=== PATIENT | female | born 1955 | race Caucasian/White ===

== ENCOUNTER → 2018-04-05 13:31 | Outpatient (CLI) | payer OTHER, SELFPAY ==
--- NOTE | 2018-04-05 13:35 | MR_ITS ---
MR lumbar spine wo con, MR 3-d myelogram/MRCP HISTORY: Low back pain, RT leg pain. Numbness and tingling. Symptoms X years. Pain has gotten worse. ITS.REASON: LUMBAR PAIN WITH RADIATION DOWN RIGHT LEG ORDERING PHYSICIAN: Constantine Degroot PATIENT AGE: 62 years Comparison: None TECHNIQUE: Standard multiplanar multiecho sequences are performed without contrast. 3-D MIP and myelographic images are also rendered and reviewed FINDINGS: There is normal alignment. The spinal cord ends at the T12-L1 level. There is mild lumbar scoliosis convex left. Multilevel degenerative disc disease with facet and ligamentum flavum hypertrophy. T10-T11: Degenerative disc disease. T11-T12: Degenerative disc disease with type II endplate changes. T12-L1: Anterior bridging osteophyte. L1-L2: Anterior bridging osteophyte with degenerative disc disease and minimal bulging disc. L2-L3: Degenerative disc disease with mild bulging disc along with mild facet and ligamentum flavum hypertrophy with mild right foraminal narrowing. L3-L4: Degenerative disc disease with bulging disc along with mild facet and ligamentum flavum hypertrophy with mild bilateral foraminal narrowing slightly greater on the right lung with mild bilateral lateral recess narrowing. L4-L5: Degenerative disc disease with Mild concentric bulging disc with minimal central disc protrusion very slightly eccentric to the right lung facet and ligamentum flavum hypertrophy with mild foraminal narrowing on the left. L5-S1: Degenerative disc disease concentric bulging disc with small central disc protrusion with increased T1 and T2 signal of the disc at this area. There is mild bilateral foraminal narrowing with facet and ligamentum flavum hypertrophy. No canal stenosis IMPRESSION: Multilevel lumbar spondylosis with degenerative disc disease and facet and ligamentum flavum hypertrophy with foraminal and lateral recess narrowing. Please see above for detailed description at each level. Degenerative disc disease at L5-S1 with concentric bulging disc and small central disc protrusion with increased T1 and T2 signal of the disc at this area. There is mild bilateral foraminal narrowing with facet and ligamentum flavum hypertrophy
== END ==
PROVIDERS: PCP Family Medicine; Visit Provider Family Medicine
DX: M54.5 Low back pain (principal); M51.36 Other intervertebral disc degeneration, lumbar region; M25.78 Osteophyte, vertebrae
CPT/HCPCS: 72148; 76376

== ENCOUNTER → 2019-05-19 12:51 | Outpatient (CLI) | payer OTHER, SELFPAY ==
--- NOTE | 2019-05-19 12:57 | MR_ITS ---
PROCEDURE: MR LUMBAR SPINE WO CON CLINICAL INDICATION: LOW BACK PAIN Low back pain, numbness and tingling down right leg, left-sided low back pain COMPARISON: SPLUMBWO MR lumbar spine wo con from 04/05/2018 TECHNIQUE: Standard multiplanar multiecho sequences are performed without contrast. 3-D MIP and myelographic images are also rendered and reviewed FINDINGS: There is normal alignment. The spinal cord ends at the L1 level. T10-T11: Degenerative disc disease. T11-T12: Degenerative disc disease with loss of the disc space anteriorly. This has progressed somewhat compared to the previous exam. Type 2 endplate changes are present T12-L1: Prominent anterior osteophyte on the left L1-L2: Anterior osteophytes. Mild disc desiccation with mild degenerative disc disease. Mild facet ligamentum hypertrophy. L2-L3: Minimal bulging disc with mild facet ligamentum hypertrophy with mild bilateral foraminal narrowing. Not significantly changed. L3-L4: Mild concentric bulging disc along with facet ligamentum hypertrophy with mild lateral recess and foraminal narrowing on the left with moderate right lateral recess and mild right foraminal narrowing. The right lateral recess narrowing is somewhat worse compared to the previous exam. L4-5: Degenerate disc disease with bulging disc with a small right paracentral disc protrusion with facet ligamentum hypertrophy with mild bilateral foraminal narrowing and right lateral recess narrowing. The small right paracentral disc protrusion appears slightly more prominent compared to the previous exam abutting the anterior medial aspect of the right L5 nerve root. L5-S1: Degenerate disc disease with bulging disc along with facet ligamentum hypertrophy with mild right and moderate to severe left foraminal narrowing not significantly changed. No extruded herniated disc evident. No bony canal stenosis IMPRESSION: 1. Multilevel lumbar spondylosis with degenerative disc disease, bulging disc, and facet and ligamentum hypertrophy. 2. T11-T12: Degenerative disc disease with loss of the disc space anteriorly. This has progressed somewhat compared to the previous exam. Type 2 endplate changes are present 3. L2-L3: Minimal bulging disc with mild facet ligamentum hypertrophy with mild bilateral foraminal narrowing. Not significantly changed. 4. L3-L4: Mild concentric bulging disc along with facet ligamentum hypertrophy with mild lateral recess and foraminal narrowing on the left with moderate right lateral recess and mild right foraminal narrowing. The right lateral recess narrowing is somewhat worse compared to the previous exam. 5. L4-5: Degenerate disc disease with bulging disc with a small right paracentral disc protrusion with facet ligamentum hypertrophy with mild bilateral foraminal narrowing and right lateral recess narrowing. The small right paracentral disc protrusion appears slightly more prominent compared to the previous exam abutting the anterior medial aspect of the right L5 nerve root. 6. L5-S1: Degenerate disc disease with bulging disc along with small central disc protrusion with facet ligamentum hypertrophy with mild right and moderate to severe left foraminal narrowing not significantly changed. 7. No extruded herniated disc evident. No bony canal stenosis Dictated by: Omari Crystal MD 05/20/2019 13:24 Electronically signed by Omari Crystal MD in [facility] 05/20/2019 13:24
== END ==
PROVIDERS: PCP Family Medicine; Visit Provider Orthopaedic Surgery Adult Reconstructive Orthopaedic Surgery
DX: M54.5 Low back pain (principal)
CPT/HCPCS: 72148; 76376

== ENCOUNTER 2020-02-07 13:22 | Emergency (ER) | payer OTHER, SELFPAY ==
[2020-02-07 13:24] VITALS: BP 153/91; PULSE 87; RESP 17; TEMP 36.8; O2SAT 97; BMI 38.6
--- NOTE | 2020-02-07 13:42 | XR_ITS ---
PROCEDURE: XR CHEST PORTABLE CLINICAL HISTORY: cough COMPARISON: CR XR CHEST 2V from 07/06/2019 FINDINGS: The cardiomediastinal silhouette and pulmonary vascularity are within normal limits. No lobar consolidation or collapse. There is patchy density in the left lung base which could be due to an area of atelectasis with minimal nodularity in the left lower lobe laterally nonspecific and may be due to an area summation artifact. Stability may be confirmed with follow-up. No acute bony abnormalities. IMPRESSION: Minimal left basilar atelectasis with nonspecific nodular density in the left lower lobe. Dictated by: Omari Crystal MD 02/07/2020 15:00 Omari Crystal MD in [facility] 02/07/2020 15:00
--- NOTE | 2020-02-07 13:43 | CT_ITS ---
PROCEDURE: CT ABDOMEN PELVIS W CON CLINICAL INDICATION: abd pain, vomiting Epigastric pain with nausea vomiting and diarrhea COMPARISON: No exams were available for comparison TECHNIQUE: IV Contrast: 75ML OPTIRAY 350 Oral Contrast None Axial images obtained with sagittal and coronal reformats. All CT scans at the facility use one or more dose reduction, viz: automated exposure control, ma/kV adjustment per patient size (including targeted exams where dose is matched to indication, i.e. head), or iterative reconstruction technique. FINDINGS: LOWER THORAX: There is patchy peripheral ground-glass opacities in both lower lobes. ABDOMEN & PELVIS: Post cholecystectomy change. The liver, spleen, adrenal glands, pancreas, and kidneys have an unremarkable appearance. There is mild thickening of the wall of the stomach which may be due to nondistention but could also be seen with gastritis. No intestinal obstruction or free air. No evidence of appendicitis. There are scattered diverticula of the colon but no evidence of diverticulitis. No pelvic mass or abnormal fluid collection of the pelvis. No acute bony findings. There is mild levoscoliosis of the lumbar spine with mild sclerosis of the SI joints. IMPRESSION: 1. No definite acute finding. 2. There is some mild thickening of the gastric wall. This could be related to nondistention versus mild gastritis. Please correlate with clinical parameters. Dictated by: Omari Crystal MD 02/07/2020 15:18 Omari Crystal MD in [facility] 02/07/2020 15:18
--- NOTE | 2020-02-07 13:44 | HMH.EDGENADL ---
ED Disposition Clinical Impression: Gastroenteritis, Suspected COVID-19 virus infection IBS (irritable bowel syndrome) Qualifiers: Irritable bowel syndrome type: with diarrhea Qualified Code(s): K58.0 - Irritable bowel syndrome with diarrhea Disposition: Home, Self-Care Condition on Discharge: Good Instructions: DI for Diarrhea and Traveler's Diarrhea -- Adult, Preventing the Spread of Coronavirus Discharge Instructions Prescriptions: Ondansetron [Zofran 4mg ODT] 4 mg PO Q6HP PRN 3 Days #12 tab.rapdis PRN Reason: Nausea Prescription Printed Referrals: Constantine Degroot [Primary Care Provider] - Time of Disposition: 16:00 - Critical Care Critical Care Time: No Attestation: On , the high probability of a clinically significant, sudden or life threatening deterioration of the following system(s) required my full and direct attention, intervention and personal management. The time I documented below is in addition to time spent performing reported procedures but includes the following listed in this critical care notation. Medical Decision Making - Medical Records Medical records reviewed: Yes: I reviewed the patient's medical records. - Slava Inquiry Pt receiving controlled substance: No Vital Signs: 02/07/20 13:24 02/07/20 14:11 02/07/20 14:59 Temperature 98.2 F Temperature Source Oral Pulse Rate Pulse Rate [Right] 87 79 78 Respiratory Rate 17 Blood Pressure Blood Pressure [Right Arm] 153/91 H 125/88 129/78 Blood Pressure Mean [Right Arm] 111 100 95 Blood Pressure Source [Right Arm] Automatic Cuff Automatic Cuff Blood Pressure Position [Right Arm] Sitting Supine 02 Sat by Pulse Oximetry 97 93 L 92 L Oxygen Delivery Method Room Air Room Air 02/07/20 15:48 02/07/20 16:05 Temperature 98.3 F Temperature Source Oral Pulse Rate 79 Pulse Rate [Right] 74 Respiratory Rate 17 Blood Pressure 128/82 Blood Pressure [Right Arm] 119/77 Blood Pressure Mean [Right Arm] 91 Blood Pressure Source [Right Arm] Automatic Cuff Blood Pressure Position [Right Arm] Supine 02 Sat by Pulse Oximetry 94 L Oxygen Delivery Method Room Air - Lab Data Lab Results 02/07/20 13:50: WBC 2.9 L, RBC 4.79, Hgb 12.9, Hct 38.4, MCV 80.2 L, MCH 26.9 L, MCHC 33.6, RDW 15.2, Plt Count 124 L, MPV 7.7, Neut % (Auto) 48.1, Lymph % (Auto) 45.7, [place] % (Auto) 4.3, Eos % (Auto) 1.3, Baso % (Auto) 0.5, Neut # (Auto) 1.4 L, Lymph # (Auto) 1.3, [place] # (Auto) 0.1, Eos # (Auto) 0.0, Baso # (Auto) 0.0 02/07/20 13:50: Urine Color Yellow, Urine Appearance Clear, Urine pH 5.5, Ur Specific [place] 1.025, Urine Protein Trace, Urine Glucose (UA) Negative, Urine Ketones Negative, Urine Blood Negative, Urine Nitrate Negative, Urine Bilirubin Negative, Urine Urobilinogen 0.2, Ur Leukocyte Esterase Negative, Urine RBC None, Urine WBC Occasional, Ur Squamous Epith Cells 5-10, Urine Bacteria None, Urine Mucus 1+ 02/07/20 13:50: Sodium 139, Potassium 4.1, Chloride 103, Carbon Dioxide 28, Anion Gap 12.1, BUN 12, Creatinine 0.60, Estimated Creat Clear 93, Estimated GFR 101, Est GFR ( Amer) 122, Glucose 119 H, Calcium 9.1, Total Bilirubin 0.7, AST 44 H, ALT 37, Alkaline Phosphatase 80, Troponin I < 0.01, Total Protein 7.9, Albumin 4.2, Globulin 3.7 H, Albumin/Globulin Ratio 1.1, Lipase 132 02/07/20 14:16: Lactate 1.2 Result diagrams: 02/07/20 13:50 02/07/20 13:50 Orders (Tests/Meds): ED MEDICATIONS Discontinued Medications Generic Name Dose Route Start Last Admin Trade Name Savage PRN Reason Stop Dose Admin Ioversol 75 ml 02/07/20 14:48 02/07/20 14:49 Rad-Optiray 350 100ml Vial IV 02/07/20 14:49 75 ml ONCE ONE Administration Protocol Sodium Chloride 10 ml 02/07/20 14:48 02/07/20 14:49 Rad-Saline Flush 10ml Syringe IV 02/07/20 14:49 10 ml ONCE ONE Administration ORDERS Category Date Time Status SARS-CoV-2, [place] ([place]) Stat Lab 02/07/20 14:16 Received - CT Data CT Scan: Abdomen
--- NOTE | 2020-02-07 13:59 | ECG_ITS ---
APPROVED REPORT Exam: Resting ECG HR:79 bpm ECG Measurements Heart Rate 79 AXES UT 122 P -18 QRSd 86 QRS -5 QT 388 T 43 QTc 444 <Conclusion> Normal sinus rhythm Normal ECG Electronically signed by : Luciano Blunt, 02/08/2020 06:03:39
[2020-02-07 14:00] LABS: Microscopic, Urine URINE MICROSCOPIC (MICROSCOPIC)
[2020-02-07 14:03] LABS: Appearance,Urine CLEAR (Clear); Bilirubin,Urine Negative (Negative); Blood, Urine Negative (Negative); Color,Urine YELLOW (Yellow); Glucose,Urine (UA) Negative (Negative); Ketones,Urine Negative (Negative); Leukocyte Esterase,Urine Negative (Negative); Nitrate,Urine Negative (Negative); PH,Urine 5.5 (5.0-8.5); Protein,Urine TRACE (Negative); Specific Gravity, Urine 1.025 (1.005-1.030); Urobilinogen,Urine 0.2 EU/dl (0.2)
[2020-02-07 14:05] LABS: Chloride 103 mmol/L (98-107); Potassium 4.1 mmoL/L (3.5-5.1); Sodium 139 mmol/L (136-145)
[2020-02-07 14:08] LABS: Alanine Aminotransferase 37 U/L (12-78); Albumin Level 4.2 g/dl (3.5-5.0); Albumin/Globulin Ratio 1.1 (1.1-1.8); Alkaline Phosphatase 80 U/L (38-126); Anion Gap 12.1 mEq/L (5-15); Aspartate Amino Transferase 44 U/L (14-36); Bilirubin,Total 0.7 mg/dl (0.2-1.3); Blood Urea Nitrogen 12 mg/dl (7-17); Calcium 9.1 mg/dl (8.4-10.2); Carbon Dioxide 28 mmol/L (22.0-30.0); Creatinine Clearance Estimated 93 mL/min (50-200); Estimated Glomerular Filt Rate 101 ml/min (>60); GFR (African American) 122 ML/MIN (>60); Globulin 3.7 g/dL (1.3-3.2); Glucose 119 mg/dl (74-100); Lipase 132 U/L (23-300); Total Protein,Serum 7.9 g/dl (6.3-8.2)
[2020-02-07 14:09] LABS: Basophils % 0.5 % (0.1-2.0); Eosinophils % 1.3 % (0.1-12.0); Hematocrit 38.4 % (37.0-47.0); Hemoglobin 12.9 g/dL (12.2-16.2); Lymphocytes # 1.3 K/mm3 (0.7-4.5); Lymphocytes % 45.7 % (10-50); Mean Corpuscular HGB Conc 33.6 g/dL (31.8-35.4); Mean Corpuscular Hemoglobin 26.9 pg (27.0-31.2); Mean Corpuscular Volume 80.2 fl (81-99); Mean Platelet Volume 7.7 fl (7.4-10.4); Monocytes # 0.1 K/mm3 (0.1-1.0); Monocytes % 4.3 % (1.7-9.3); Mucus,Urine 1+ /lpf; Neutrophils # 1.4 K/mm3 (1.8-7.8); Neutrophils % 48.1 % (37.0-80.0); Platelet Count 124 K/mm3 (142-424); Red Blood Count 4.79 M/mm3 (4.20-5.40); Red Cell Distribution Width 15.2 % (11.5-17.5); WBC,Urine Occasional #/hpf (0-3); White Blood Count 2.9 K/mm3 (4.8-10.8)
[2020-02-07 14:11] VITALS: BP 125/88; PULSE 79; O2SAT 93
[2020-02-07 14:20] LABS: Troponin I < 0.01 ng/ml (0.00-0.034)
[2020-02-07 14:53] LABS: Lactic Acid 1.2 mmol/L (0.7-2.1)
[2020-02-07 14:59] VITALS: BP 129/78; PULSE 78; O2SAT 92
[2020-02-07 15:48] VITALS: BP 119/77; PULSE 74; O2SAT 94
[2020-02-07 16:05] VITALS: BP 128/82; PULSE 79; RESP 17; TEMP 36.8; O2SAT 95
[2020-02-08 08:40] LABS: Covid-19 Nasal PCR Sendout UK Detected
--- NOTE | 2020-02-08 08:46 | PC.NURSE ---
NOTIFIED PT OF POSITIVE COVID19 RESULTS AND INFORMATION ON SELF ISOLATION AND SELF QUARANTINE
== END 2020-02-07 16:07 | disposition home or self-care (01) ==
PROVIDERS: Emergency Provider Emergency Medicine; PCP Family Medicine
DX: U07.1 COVID-19 (principal); K52.9 Noninfective gastroenteritis and colitis, unspecified; K58.0 Irritable bowel syndrome with diarrhea; Z88.5 Allergy status to narcotic agent
CPT/HCPCS: 71045; 74177; 80053; 81001; 83605; 83690; 84484; 85025; 93005; 99283; Q9967; U0003

== ENCOUNTER 2020-03-20 13:21 | Emergency (ER) | payer OTHER, SELFPAY ==
[2020-03-20 13:31] VITALS: BP 115/83; PULSE 69; RESP 18; TEMP 36.7; O2SAT 99; BMI 37.4
--- NOTE | 2020-03-20 13:52 | HMH.EDUTC ---
[facility] [place] Clinical Impression: Cellulitis Qualifiers: Site of cellulitis: extremity Site of cellulitis of extremity: lower extremity Laterality: left Qualified Code(s): L03.116 - Cellulitis of left lower limb Disposition: Home, Self-Care Condition on Discharge: Good Instructions: DI for Cellulitis -- Adult, Cellulitis, Clindamycin Additional Instructions: *Start antibiotic(s) immediately and be sure to take as ordered for the FULL length of time although you may be feeling better or start to see improvement in the next 24-48 hours *Monitor closely. Outlined redness so that you can monitor easier. Follow up immediately for new or worsening symptoms including but not limited to redness, swelling, streaking from site fever or chills. *Warm compress 15 minutes 3-4 times day *Never squeeze or pop these on your own. Seek immediate medical attention next time this occurs *Monitor Temp. Tylenol every 4 hours as needed and ibuprofen every 6 hours as needed (as long as your primary care doctor has told you that it is ok to take both. For fever, aches, pain. ER if no less that 101 despite Tylenol and ibuprofen Follow up with your family doctor/primary care physician in the next 48-72 hours if no improvement Return if needed Straight to ER if any life threatening symptoms Prescriptions: clindamycin HCL [Clindamycin HCl 300mg Cap] 300 mg PO Q8 7 Days #21 cap Transmission Status: Received by [facility] Referrals: Constantine Degroot [Primary Care Provider] - As needed (Follow up in the next 48-72 hours if no improvement or any worsening of symptoms) Time of Disposition: 14:03 Medical Decision Making - Slava Inquiry Pt receiving controlled substance: No Slava was queried for this patient: No Vital Signs: 03/20/20 13:31 03/20/20 14:12 Temperature 98.1 F 98.1 F Temperature Source Oral Oral Pulse Rate 69 Pulse Rate [Radial] 69 Respiratory Rate 18 18 Blood Pressure 115/83 Blood Pressure [Right Arm] 115/83 Blood Pressure Mean [Right Arm] 93 Blood Pressure Source Automatic Cuff Blood Pressure Source [Right Arm] Automatic Cuff Blood Pressure Position Sitting Blood Pressure Position [Right Arm] Sitting 02 Sat by Pulse Oximetry 99 Oxygen Delivery Method Room Air Room Air [facility] [place] - General Stated complaint: left foot leg swelling pain Time Seen by Provider: 03/20/20 13:52 Mode of Arrival: Ambulatory Source of Information: Patient Limitations: No Limitations Description of Symptoms (Recalled from Triage Doc. by RN): left leg swelling and sore HEENT Symptoms (Recalled from RN notes): No Resp Symptoms (Recalled from RN notes): No Skin Symptoms (Recalled from RN notes): Yes MS Symptoms (Recalled from RN notes): Yes Functional Status (Recalled from RN notes): wnl - History of Present Illness Provider Complaint: Patient states that a couple days ago she noticed a small pimple like bump on her left lower leg and she scratched it States that ever since she has been having some redness and swelling and pain on and off in her lower leg and noticed that redness is moving up her leg States that today it was still swollen so she come in to get it checked - Related Data Previous Rx's Medication Instructions Recorded Azithromycin [Zithromax 250mg 250 mg PO DIRECTED #6 tab 07/06/19 tab] Guaifenesin/Dextromethorphan 1 tab PO BID PRN #20 tab 07/06/19 [Mucinex Dm ER 1,200-60 mg Tab] predniSONE [Prednisone 50mg Tab] 50 mg PO DAILY #5 tab 07/06/19 Ondansetron [Zofran 4mg ODT] 4 mg PO Q6HP PRN 3 Days #12 02/07/20 tab.rapdis clindamycin HCL [Clindamycin HCl 300 mg PO Q8 7 Days #21 cap 03/20/20 300mg Cap] Allergies Allergy/AdvReac Type Severity Reaction Status Date / Time aspirin Allergy Verified 07/06/19 13:02 diphenhydramine Allergy Verified 07/06/19 13:02 [From Benadryl] morphine Allergy Verified 07/06/19 13:02 Penicillins Allergy Verified 03/20/20 14:00 - Worker's Co
[2020-03-20 14:12] VITALS: BP 115/83; PULSE 69; RESP 18; TEMP 36.7; O2SAT 99
== END 2020-03-20 14:13 | disposition home or self-care (01) ==
PROVIDERS: Emergency Provider Nurse Practitioner; PCP Family Medicine
DX: L03.116 Cellulitis of left lower limb (principal); E11.9 Type 2 diabetes mellitus without complications
CPT/HCPCS: 99201

== ENCOUNTER 2020-04-22 16:39 | Emergency (ER) | payer OTHER, SELFPAY ==
[2020-04-22 16:48] VITALS: BP 159/90; PULSE 80; RESP 18; TEMP 37.2; O2SAT 98; BMI 36.0
--- NOTE | 2020-04-22 17:17 | HMH.EDGENADL ---
ED Disposition Clinical Impression: Pain in left lower leg Disposition: Home, Self-Care Condition on Discharge: Good Instructions: DI for Leg Pain Referrals: Constantine Degroot [Primary Care Provider] - 3 days - Critical Care Critical Care Time: No Attestation: On 04/22/20, the high probability of a clinically significant, sudden or life threatening deterioration of the following system(s) required my full and direct attention, intervention and personal management. The time I documented below is in addition to time spent performing reported procedures but includes the following listed in this critical care notation. Medical Decision Making - Medical Records Medical records reviewed: Yes: I reviewed the patient's medical records. - Slava Inquiry Pt receiving controlled substance: No Vital Signs: 04/22/20 16:48 Temperature 99 F Temperature Source Oral Pulse Rate [Radial] 80 Respiratory Rate 18 Blood Pressure [Right Arm] 159/90 H Blood Pressure Mean [Right Arm] 113 Blood Pressure Position [Right Arm] Sitting 02 Sat by Pulse Oximetry 98 Oxygen Delivery Method Room Air - Lab Data Lab results reviewed: Yes: I reviewed the patient's lab results. Lab Results 04/22/20 18:05: WBC 4.7 L, RBC 4.60, Hgb 12.5, Hct 38.9, MCV 84.7, MCH 27.1, MCHC 32.0, RDW 15.8, Plt Count 187, MPV 7.9, Neut % (Auto) 48.2, Lymph % (Auto) 42.7, [place] % (Auto) 5.0, Eos % (Auto) 3.4, Baso % (Auto) 0.7, Neut # (Auto) 2.3, Lymph # (Auto) 2.0, [place] # (Auto) 0.2, Eos # (Auto) 0.2, Baso # (Auto) 0.0 04/22/20 18:05: Sodium 143, Potassium 3.9, Chloride 107, Carbon Dioxide 29, Anion Gap 10.9, BUN 15, Creatinine 0.80, Estimated Creat Clear 87, Estimated GFR 72, Est GFR ( Amer) 88, Glucose 122 H, Calcium 9.6 Result diagrams: 04/22/20 18:05 04/22/20 18:05 Medical Decision Narrative: Patient with no signs of sepsis, no leukocytosis or fever that would suggest acute infectious process. As 3 rounds of antibiotics have not helped and she has not been acutely ill, I have low suspicion for acute infectious etiology and would consider something more like peripheral neuropathy or venous stasis causing her symptoms. She may benefit from vascular surgery consult, podiatry consult and can arrange this further with primary care provider. Discharged home. General Adult HPI - General Chief complaint: PAIN Stated complaint: Left leg pain, redness, swollen Time Seen by Provider: 04/22/20 17:17 Mode of Arrival: Ambulatory Limitations: No Limitations Description of Symptoms (Recalled from ER Triage Doc. by RN): TO ED PER [facility] [facility] PT STATES SENT BY PCP FOR EVAL DUE TO INFECTION LT LOWER LEG. PT STATES SYMPTOMS X 7 WEEKS AND HAS BEEN ON 3 ROUNDS OF ANTIBIOTICS WITH NO CHANGES IN SYMPTOMS. STATES TODAY + NAUSEA, VOMITING, DIAPHORESIS. - History of Present Illness HPI narrative: This is a 64-year-old female with a past medical history significant for diabetes who presents to the emergency department for 7 weeks of swelling and redness in her left lower extremity. She just had vascular studies yesterday which patient reports shows no DVT. She has been on 3 rounds of antibiotics with no relief of symptoms. She tried compression stockings, but she continued to have pain and redness, and seemed to paradoxically have increased swelling in the leg. Nothing in particular makes her symptoms better or worse. She has had a fever only 1 time during the course of the 7 weeks of problems with her leg. She has not had any recent fevers. She just finished a course of doxycycline today. - Related Data Previous Rx's Medication Instructions Recorded Azithromycin [Zithromax 250mg 250 mg PO DIRECTED #6 tab 07/06/19 tab] Guaifenesin/Dextromethorphan 1 tab PO BID PRN #20 tab 07/06/19 [Mucinex Dm ER 1,200-60 mg Tab] predniSONE [Prednisone 50mg Tab] 50 mg PO DAILY #5 tab 07/06/19 Ondansetron [Zofran 4mg ODT] 4 mg PO Q6HP PRN 3 Days #12 02/07/20 severiano
[2020-04-22 18:16] LABS: Basophils % 0.7 % (0.1-2.0); Eosinophils # 0.2 K/mm3 (0.0-0.4); Eosinophils % 3.4 % (0.1-12.0); Hematocrit 38.9 % (37.0-47.0); Hemoglobin 12.5 g/dL (12.2-16.2); Lymphocytes % 42.7 % (10-50); Mean Corpuscular Hemoglobin 27.1 pg (27.0-31.2); Mean Corpuscular Volume 84.7 fl (81-99); Mean Platelet Volume 7.9 fl (7.4-10.4); Monocytes # 0.2 K/mm3 (0.1-1.0); Neutrophils # 2.3 K/mm3 (1.8-7.8); Neutrophils % 48.2 % (37.0-80.0); Platelet Count 187 K/mm3 (142-424); Red Cell Distribution Width 15.8 % (11.5-17.5); White Blood Count 4.7 K/mm3 (4.8-10.8)
[2020-04-22 18:20] LABS: Chloride 107 mmol/L (98-107); Potassium 3.9 mmoL/L (3.5-5.1); Sodium 143 mmol/L (136-145)
[2020-04-22 18:23] LABS: Anion Gap 10.9 mEq/L (5-15); Blood Urea Nitrogen 15 mg/dl (7-17); Calcium 9.6 mg/dl (8.4-10.2); Carbon Dioxide 29 mmol/L (22.0-30.0); Creatinine Clearance Estimated 87 mL/min (50-200); Estimated Glomerular Filt Rate 72 ml/min (>60); GFR (African American) 88 ML/MIN (>60); Glucose 122 mg/dl (74-100)
[2020-04-22 18:48] VITALS: BP 132/78; PULSE 78; RESP 16; TEMP 36.6
== END 2020-04-22 18:50 | disposition home or self-care (01) ==
PROVIDERS: Emergency Provider Emergency Medicine; PCP Family Medicine
DX: M79.662 Pain in left lower leg (principal); E11.9 Type 2 diabetes mellitus without complications; Z88.0 Allergy status to penicillin; Z88.5 Allergy status to narcotic agent; Z79.84 Long term (current) use of oral hypoglycemic drugs
CPT/HCPCS: 80048; 85025; 99282

== ENCOUNTER → 2020-06-04 16:39 | Outpatient (CLI) | payer OTHER, SELFPAY ==
--- NOTE | 2020-06-04 16:40 | MR_ITS ---
PROCEDURE: MR LUMBAR SPINE WO CON CLINICAL INDICATION: LUMBAR BACK PAIN, BILATERAL LEG PAIN LOW BACK PAIN, BILATERAL LEG TINGLING/NUMBNESS/CELLULITIS, BILATERAL HIP PAIN, NO INJURY. PRIOR MRI 05-19-19 COMPARISON: MR MR LUMBAR SPINE WO CON from 05/19/2019 TECHNIQUE: Standard multiplanar multiecho sequences are performed without contrast. 3-D MIP and myelographic images are also rendered and reviewed FINDINGS: There is normal alignment. The spinal cord ends at the T12-L1 level. T11-T12: Degenerative disc disease with partial fusion anteriorly T12-L1: Prominent anterior osteophyte on the left. L1-L2: Degenerative disc disease with small anterior osteophytes and minimal bulging disc. L2-L3: Degenerative disc disease with minimal bulging disc with mild facet and ligamentum hypertrophy with bilateral lateral recess narrowing and bilateral foraminal narrowing. The facet and ligamentum hypertrophy appears slightly greater compared to the previous exam. L3-L4: Degenerative disc disease with bulging disc and minimal broad-based central disc protrusion with facet and ligamentum hypertrophy with bilateral lateral recess narrowing and bilateral foraminal narrowing with canal stenosis. The lateral recess narrowing is greater on the right compared to the left with some minimal impingement of the right L4 nerve root. The facet and ligamentum hypertrophy is slightly worse. L4-5: Degenerative disc disease with bulging disc along with facet and ligamentum hypertrophy with mild bilateral foraminal narrowing not significantly changed. Previously there was a small central disc protrusion at this level which is not identified on today's exam L5-S1: Degenerative disc disease with bulging disc. There are type 2 endplate changes with facet and ligamentum hypertrophy. There is left-sided foraminal narrowing not significantly changed. No extruded herniated disc are evident. IMPRESSION: Multilevel lumbar spondylosis with degenerative disc disease, bulging disc, facet and ligamentum hypertrophy with lateral recess and foraminal narrowing. Please see above for detailed description at each level. No extruded herniated disc. Some of the facet hypertrophy is slightly worse compared to the previous exam but overall no significant changes apparent. Dictated by: Omari Crystal MD 06/05/2020 11:31 Omari Crystal MD in [place] 06/05/2020 11:31
== END ==
PROVIDERS: PCP Family Medicine; Visit Provider Family Medicine
DX: M54.5 Low back pain (principal); M79.605 Pain in left leg; M79.604 Pain in right leg; G57.93 Unspecified mononeuropathy of bilateral lower limbs
CPT/HCPCS: 72148; 76376

== ENCOUNTER → 2020-06-17 10:27 | Outpatient (POV) | payer OTHER, SELFPAY ==
[2020-06-17 11:06] VITALS: BP 133/85; PULSE 74; RESP 18; O2SAT 98; BMI 37.4
--- NOTE | 2020-06-17 13:22 | HMH.PMCON ---
Assessment and Plan (1) Degenerative joint disease (DJD) of lumbar spine Status: Chronic Category: Medical Code(s): M47.816 - Spondylosis without myelopathy or radiculopathy, lumbar region (2) Lumbar radiculopathy Status: Chronic Category: Medical Code(s): M54.16 - Radiculopathy, lumbar region (3) Herniated disc Status: Chronic Category: Medical - Assessment and plan all Dx Assessment and Plan for all problems:: Patient is accompanied with a family member today. She and I did discuss the results of her MRI. I did discuss with the patient that her MRI has suggested she undergo an MRI with contrast to rule out a nerve sheath tumor. Patient is not in agreement to proceed with an MRI with contrast. She and I did discuss seeing a neurosurgeon. Her MRI report does note an extruded herniated disc in the right paracentral and foraminal region. The patient says that they have a family member that they would like to discuss who she would like to be referred to. She says that her family member is a neurosurgical nurse at [facility] and she will be able to give a recommendation on an appropriate neurosurgeon. Patient has been informed that she does need to establish a referral as soon as possible. She will contact the clinic to give us the name of who she would like to have a referral sent. We can see her back after her neurosurgical evaluation. She has been instructed to contact clinic if she has any concerns before next appointment. The patient and I specifically discussed risk factors for COVID19. These risks include, but are not limited to age greater than 60, heart or lung disease, diabetes, immunosuppression, and travel. We also discussed NSAIDs may worsen COVID19 infection or symptoms. Patient should not use NSAIDs to treat COVID19 signs or symptoms. Patient was also informed that any type of corticosteroid of any form (oral or injection) will decrease the patient's immune system response and may increase the likelihood of COVID19 infection and symptoms[address] Prado has reviewed this note and agrees with this plan of care. This note was dictated using voice recognition software and make contain errors or omissions. HPI - Data of Consult Patient: new to practice Consult date: 06/17/20 Requesting Physician: Flory Suarez APRN Primary Care Provider: Constantine Degroot - Consult Narrative Reason for consult: Low back pain with radiation into right leg History of present illness: Ms. Raza is a 64 year old female who presents today for consultation for chronic right low back pain with radiation into her right leg. She also has pain in her left low back area, however, she says her pain is worse on the right side at this time. Patient says she has difficulty standing and walking and has pain with prolonged sitting. She also says that laying at night causes her to have significant pain. Patient says that the pain radiates into her right buttock, right hip and right leg. It does not go to the foot. She rates her pain a 9 out of 10. She does have an MRI from May 2020. She is here today to discuss the MRI and discuss her treatment options. She has tried anti-inflammatories with no relief. She is tried ice and heat therapies as well with no relief. Patient does report that she is having frequent falls as well. CC: Flory Suarez APRN [facility] History I have reviewed the patient's past medical history: Yes Medical History: Reports:: Diabetes Mellitus Type 2 Denies:: Cancer, MRSA *Have you ever received a pneumonia vaccine?: Yes *Have you received a flu vaccine this season?: Yes Other Medical History: Reports: Arthritis Other Surgeries: Yes: Cholecystectomy, Colonoscopy, Tubal Ligation Amputation: No Fractures: No - *Social History Smoking Status: Former smoker Tobacco Type: cigarettes Smoking End Date: 2005 Alcohol Intake: never *Occupational Status:: retired Housing: [facility]
--- NOTE | 2020-06-17 13:47 | HMH.PMCON ---
Assessment and Plan (1) Degenerative joint disease (DJD) of lumbar spine Status: Chronic Category: Medical Code(s): M47.816 - Spondylosis without myelopathy or radiculopathy, lumbar region (2) Lumbar radiculopathy Status: Chronic Category: Medical Code(s): M54.16 - Radiculopathy, lumbar region (3) Herniated disc Status: Chronic Category: Medical - Assessment and plan all Dx Assessment and Plan for all problems:: We will schedule the patient for medial branch block/facet joint injections at L4-L5 L5-S1. The patient is not on any anticoagulation therapy. She does have facet loading, along with spondylosis and arthropathy noted to her MRI. We will see her back in the clinic after injections reassess her symptoms. She will continue with conservative therapies of home stretching and anti-inflammatories. The patient and I specifically discussed risk factors for COVID19. These risks include, but are not limited to age greater than 60, heart or lung disease, diabetes, immunosuppression, and travel. We also discussed NSAIDs may worsen COVID19 infection or symptoms. Patient should not use NSAIDs to treat COVID19 signs or symptoms. Patient was also informed that any type of corticosteroid of any form (oral or injection) will decrease the patient's immune system response and may increase the likelihood of COVID19 infection [address] symptoms[address] Prado has reviewed this note and agrees with this plan of care. This note was dictated using voice recognition software and make contain errors or omissions. HPI - Data of Consult Patient: new to practice Consult date: 06/17/20 Requesting Physician: Flory Suarez APRN Primary Care Provider: Constantine Degroot - Consult Narrative Reason for consult: Low back pain History of present illness: Ms. Raza is a 64 year old female presents today for consultation for chronic low back pain. Patient says that she is having worsening low back pain when she bends forward or extends at her waist. She also states says that turning from side to side causes her to have significant pain. Patient says she has difficulty bending forward to tie her shoes or when raising out of the bed. She says she is unable to turn at night when she is in the bed due to the pain. She rates her pain an 8 out of 10 today. Patient is not on any anticoagulation therapy. She has had lumbar epidural steroid injections in the past that did give her about 30 to 40% relief, however, her pain has changed. She has tried greater than 6 months of conservative therapies of physical therapy and a continued home stretching program. Anti-inflammatories did not give the patient any relief. CC: Flory Suarez APRN [facility] [place] History Medical History: Reports:: Diabetes Mellitus Type 2 Denies:: Cancer, MRSA *Have you ever received a pneumonia vaccine?: Yes *Have you received a flu vaccine this season?: Yes Other Medical History: Reports: Arthritis Other Surgeries: Yes: Cholecystectomy, Colonoscopy, Tubal Ligation Amputation: No Fractures: No - *Social History Smoking Status: Former smoker Tobacco Type: cigarettes Smoking End Date: 2005 Alcohol Intake: never *Occupational Status:: retired Housing: house Household Members: other *Travel in the last 8 weeks: None Family Hx:: Unable to obtain Review of Systems - Review of Systems Review of Systems General: No recent weight changes, no fever, no sleep disturbances Respiratory: No cough, no shortness of air, no recurring pulmonary infections Cardiovascular/peripheral vascular: No chest pain, no palpitations, no edema, no shortness of breath Gastrointestinal: No new onset incontinence, normal bowel movements reported Genitourinary: No new onset incontinence Musculoskeletal: Low back pain worse with bending forward or extending at the waist Psychiatric: Normal mood/affect Neurological: [Denies weakness in extremities], [denies balance issues] Meds Home Medic
== END ==
PROVIDERS: PCP Family Medicine; Visit Provider Clinical Nurse Specialist Family Health
DX: M47.896 Other spondylosis, lumbar region (principal); M54.16 Radiculopathy, lumbar region
CPT/HCPCS: 99202

== ENCOUNTER 2020-06-25 13:18 | Day surgery (SDC) | payer OTHER, SELFPAY ==
[2020-06-25 13:42] VITALS: BP 127/71; PULSE 61; RESP 18; TEMP 36.4; O2SAT 98; BMI 37.8
[2020-06-25 14:13] VITALS: BP 152/78; PULSE 85; RESP 18
[2020-06-25 14:14] VITALS: BP 148/89; PULSE 85; RESP 18; O2SAT 98
--- NOTE | 2020-06-25 14:25 | HMH.PMPROC ---
- Procedure Date: 06/25/20 Time: 14:25 Anesthesiologist:: Joe Prado MD Complications:: None Pre-procedure Diagnosis:: Degenerative disc disease of lumbar spine with lumbar spondylosis and lumbar facet arthropathy Post-procedure Diagnosis:: Same Indications for Procedure:: This patient is a pleasant 64-year-old white female who we are treating for low back pain with lumbar spondylosis and lumbar facet arthropathy. She does have increasing pain in her back worse with extension and twisting. She is tender over the facet joints of L4-5 and L5-S1. She has significant facet loading at both of these levels on both sides. We will do bilateral lumbar facet joint injection/medial branch blocks of L4-5 and L5-S1 today. Procedure Details:: Lumbar medial branch block Informed consent was obtained and the risks and benefits of the procedure was explained to the patient. The back was prepped using ChloraPrep. The skin and subcutaneous tissues were anesthetized using lidocaine. I placed 22-gauge spinal needles into the facet joint/medial branches of L4-L5 and L5-S1 bilaterally. Needle placement was confirmed with dye. After this we injected 3 mL bupivacaine 0.25% and Depo-Medrol 20 mg into each facet joint/medial branch of L4-L5 and L5-S1 bilaterally. We used a total of 80 mg Depo-Medrol for both levels bilaterally. The patient tolerated the procedure well with no complications. Plan and Disposition:: We will follow-up with her in 2 weeks. Will reevaluate symptoms at that time. If successful we may proceed to RF ablation of both of these levels.
[2020-06-25 14:32] VITALS: BP 138/88; PULSE 65; RESP 18; O2SAT 98
== END 2020-06-25 14:33 | disposition home or self-care (01) ==
LOC: SC.PAINP 13:18
PROVIDERS: PCP Family Medicine; Visit Provider Anesthesiology
DX: M51.36 Other intervertebral disc degeneration, lumbar region (principal); M47.816 Spondylosis without myelopathy or radiculopathy, lumbar region; M54.06 Panniculitis affecting regions of neck and back, lumbar region; J44.9 Chronic obstructive pulmonary disease, unspecified; K21.9 Gastro-esophageal reflux disease without esophagitis; G43.909 Migraine, unspecified, not intractable, without status migrainosus; K58.9 Irritable bowel syndrome, unspecified; Z90.49 Acquired absence of other specified parts of digestive tract
CPT/HCPCS: 64493; 64494; J1030; Q9966

== ENCOUNTER → 2020-07-19 09:44 | Outpatient (POV) | payer OTHER, SELFPAY ==
[2020-07-19 10:05] VITALS: BP 133/79; PULSE 77; RESP 18; TEMP 36.8; O2SAT 98; BMI 37.8
--- NOTE | 2020-07-19 10:13 | HMH.PAINSOAP ---
[facility] Pain Management SOAP Note Subjective:: Patient is a pleasant 64-year-old white female who presents today for follow-up after bilateral medial branch blocks at L4-L5 L5-S1. Patient got over 80% relief for a week after the injection. Patient states her pain is beginning to return. She may be a neurotomy candidate. Patient is not on any anticoagulation therapy. She is on gabapentin 300 mg 1 p.o. 3 times daily. Patient does get this from Dr. Degroot I discussed with her that we will take this over if he does not want to continue it. Patient's Slava #[id number] reviewed. patient has failed other conservative therapies including physical therapy, anti-inflammatories, medications. ROS General: no recent weight change, no fever, no sleep disturbances Respiratory: no cough, no shortness of air, no recurring pulmonary infections Cardiovascular/Peripheral Vascular: No chest pain, No palpitations, no edema, no shortness of breath. Gastrointestinal: no new onset incontinence, normal bowel movements reported Genitourinary: no new onset incontinence Musculoskeletal: Back pain Psychiatric: normal mood/ affect Neurological: [denies new onset weakness in extremities], [denies new onset balance issues] Objective:: Physical Exam General: Alert and oriented x3, no acute distress, pleasant and cooperative, [on room air] Lungs: Resps E/U, Symmetrical chest expansion, Eyes: PERRL Musculoskeletal: Flexion and extension of lumbar spine somewhat guarded secondary to pain, deep tendon reflexes normal, strength in upper and lower extremities [5/5], [abnormal gait noted] positive facet loading lumbar spine Neurological: speech clear, full stack developer equal, no gross sensory deficits Assessment:: Degenerative disc disease lumbar spine lumbar facet arthropathy, spondylosis Plan:: We will replete her L4-L5 L5-S1 bilateral medial branch block. Given the efficacy of this I do believe it would benefit her. She may be a neurotomy candidate. I will follow-up with her after this reassess her symptoms at that time if she does well with this we will move forward with the radiofrequency ablation. Dr. Prado has reviewed this note and agrees with this plan of care. This note was dictated using voice recognition software and may contain errors or omissions [facility] History I have reviewed the patient's past medical history: Yes Medical History: Reports:: Diabetes Mellitus Type 2 Denies:: Cancer, Diabetes Mellitus Type 1, MRSA, Seizures *Have you ever received a pneumonia vaccine?: Yes *Have you received a flu vaccine this season?: Yes Other Medical History: Reports: Arthritis. Denies: Blood Transfusion Reaction Other Surgeries: Yes: Cholecystectomy, Colonoscopy, Tubal Ligation Amputation: No Fractures: No - *Social History Smoking Status: Former smoker Tobacco Type: cigarettes Alcohol Intake: never *Occupational Status:: retired Housing: house Household Members: spouse *Travel in the last 8 weeks: None Family Hx:: Unable to obtain
== END ==
PROVIDERS: PCP Family Medicine; Visit Provider Clinical Nurse Specialist Family Health
DX: M51.36 Other intervertebral disc degeneration, lumbar region (principal); M47.816 Spondylosis without myelopathy or radiculopathy, lumbar region; M54.06 Panniculitis affecting regions of neck and back, lumbar region
CPT/HCPCS: 99212; G0463

== ENCOUNTER 2020-08-06 10:02 | Day surgery (SDC) | payer OTHER, SELFPAY ==
[2020-08-06 10:34] VITALS: BP 138/76; PULSE 73; RESP 18; TEMP 36.6; O2SAT 98; BMI 37.8
[2020-08-06 11:23] VITALS: BP 135/85; PULSE 85; RESP 18; O2SAT 98
[2020-08-06 11:24] VITALS: BP 138/85; PULSE 85; RESP 18; O2SAT 98
[2020-08-06 11:32] VITALS: BP 140/75; PULSE 64; RESP 18; O2SAT 98
--- NOTE | 2020-08-06 13:01 | HMH.PMPROC ---
- Procedure Date: 08/06/20 Time: 13:01 Anesthesiologist:: Joe Prado MD Complications:: None Pre-procedure Diagnosis:: Degenerative disc disease of lumbar spine with lumbar spondylosis and lumbar facet arthropathy Post-procedure Diagnosis:: Same Indications for Procedure:: This patient is a pleasant 64-year-old white female who we are treating for low back pain with lumbar spondylosis and lumbar facet arthropathy. She has increasing pain with extension and twisting. She is tender over the facet joints of L4-5 and L5-S1. We will do bilateral lumbar medial branch block/facet joint injections of L4-5 and L5-S1 today. She did work very well with her previous round of medial branch blocks. She was 80% better for over a week. Procedure Details:: Lumbar medial branch block Informed consent was obtained and the risks and benefits of the procedure was explained to the patient. The back was prepped using ChloraPrep. The skin and subcutaneous tissues were anesthetized using lidocaine. I placed 22-gauge spinal needles into the facet joint/medial branches of L4-L5 and L5-S1 bilaterally. Needle placement was confirmed with dye. After this we injected 5 mL bupivacaine 0.25% into each facet joint/medial branch of L4-L5 and L5-S1 bilaterally. The patient tolerated the procedure well with no complications. Plan and Disposition:: We will follow-up with her in 2 weeks. Will reevaluate symptoms at that time. She did have these last month which were successful if these are successful we will seek approval and plan on radiofrequency ablation to the same levels
== END 2020-08-06 11:34 | disposition home or self-care (01) ==
LOC: SC.PAINP 10:06
PROVIDERS: PCP Family Medicine; Visit Provider Anesthesiology
DX: M51.36 Other intervertebral disc degeneration, lumbar region (principal); M47.816 Spondylosis without myelopathy or radiculopathy, lumbar region; M54.06 Panniculitis affecting regions of neck and back, lumbar region; R00.2 Palpitations; J44.9 Chronic obstructive pulmonary disease, unspecified; K21.9 Gastro-esophageal reflux disease without esophagitis; K58.9 Irritable bowel syndrome, unspecified; F41.9 Anxiety disorder, unspecified; F32.9 Major depressive disorder, single episode, unspecified; G43.909 Migraine, unspecified, not intractable, without status migrainosus; Z90.49 Acquired absence of other specified parts of digestive tract; Z88.0 Allergy status to penicillin
CPT/HCPCS: 64493; 64494; Q9966

== ENCOUNTER → 2020-09-02 10:39 | Outpatient (POV) | payer OTHER, SELFPAY ==
--- NOTE | 2020-09-02 12:08 | HMH.PAINSOAP ---
[facility] [place] Pain Management SOAP Note Subjective:: Patient is a pleasant 64-year-old white female who are treating for low back pain with lumbar spondylosis lumbar facet arthropathy. Patient has increasing pain with extension and twisting. She is tender over her L4-L5 L5-S1 bilateral facet joints. Patient had 2 medial branch blocks with over 80% success. Patient would like to move forward with the radiofrequency ablation. Patient is not on any anticoagulation therapy she has failed other conservative treatments. ROS General: no recent weight change, no fever, no sleep disturbances Respiratory: no cough, no shortness of air, no recurring pulmonary infections Cardiovascular/Peripheral Vascular: No chest pain, No palpitations, no edema, no shortness of breath. Gastrointestinal: no new onset incontinence, normal bowel movements reported Genitourinary: no new onset incontinence Musculoskeletal: Back pain Psychiatric: normal mood/ affect Neurological: [denies new onset weakness in extremities], [denies new onset balance issues] Objective:: Physical Exam General: Alert and oriented x3, no acute distress, pleasant and cooperative, [on room air] Lungs: Resps E/U, Symmetrical chest expansion, Eyes: PERRL Musculoskeletal: Flexion and extension of lumbar spine somewhat guarded secondary to pain, deep tendon reflexes normal, strength in upper and lower extremities [5/5], [abnormal gait noted] Neurological: speech clear, guide setter equal, no gross sensory deficits Assessment:: Degenerative disc disease lumbar spine lumbar spondylosis and lumbar facet arthropathy Plan:: We will schedule the patient for an L4-L5 L5-S1 bilateral RFA given the efficacy of her medial branch blocks I do believe she would benefit from this. I will follow-up with her afterwards reassess her symptoms at that time she has been instructed to call the office if she has any issues prior to her next appointment. She is failed 6 months of conservative treatment including medication management. Dr. Prado has reviewed this note and agrees with this plan of care. This note was dictated using voice recognition software and may contain errors or omissions [facility] [place] History I have reviewed the patient's past medical history: Yes Medical History: Reports:: Diabetes Mellitus Type 2, Palpitations Denies:: Cancer, Diabetes Mellitus Type 1, MRSA, Seizures *Have you ever received a pneumonia vaccine?: No *Have you received a flu vaccine this season?: No Other Medical History: Reports: Arthritis. Denies: Blood Transfusion Reaction Other Surgeries: Yes: Cholecystectomy, Colonoscopy, Tubal Ligation Amputation: No Fractures: No - *Social History Smoking Status: Former smoker Tobacco Type: cigarettes Alcohol Intake: never *Occupational Status:: retired Housing: house Household Members: spouse *Travel in the last 8 weeks: None Family Hx:: Unable to obtain
[2020-09-02 12:10] VITALS: BP 132/71; PULSE 69; RESP 18; O2SAT 98; BMI 38.6
== END ==
PROVIDERS: PCP Family Medicine; Visit Provider Clinical Nurse Specialist Family Health
DX: M51.36 Other intervertebral disc degeneration, lumbar region (principal); M54.06 Panniculitis affecting regions of neck and back, lumbar region; M47.816 Spondylosis without myelopathy or radiculopathy, lumbar region
CPT/HCPCS: 99212; G0463

== ENCOUNTER 2020-09-10 09:52 | Day surgery (SDC) | payer OTHER, SELFPAY ==
[2020-09-10 10:28] VITALS: BP 157/93; PULSE 72; RESP 18; TEMP 36.6; O2SAT 98; BMI 38.6
[2020-09-10 11:01] VITALS: BP 132/78; BP 141/78; PULSE 85; PULSE 89; RESP 18; O2SAT 98
--- NOTE | 2020-09-10 11:08 | HMH.PMPROC ---
- Procedure Date: 09/10/20 Time: 11:08 Anesthesiologist:: Joe Prado MD Complications:: None Pre-procedure Diagnosis:: Degenerative disc disease of lumbar spine with lumbar facet arthropathy and lumbar spondylosis Post-procedure Diagnosis:: Same Indications for Procedure:: This patient is a pleasant 65-year-old white female who we have been treating for low back pain with lumbar facet arthropathy and lumbar spondylosis. She is done well with 2 previous medial branch blocks of L4-5 and L5-S1. She has had 80 to 90% relief of her symptoms for several days. She presents for RF ablation to the left side of L4-5 and L5-S1 today. Procedure Details:: Lumbar RFA informed consent was obtained and the risk and benefits of the procedure was explained to the patient. Patient was placed prone on the procedure table. The patient was prepped and draped in sterile fashion. C-arm fluoroscopy was used to view the lumbar spine. The skin and subcutaneous tissues were anesthetized using lidocaine. I placed 20-gauge RF needles into the facet joints of L4-L5 and L5-S1 levels on the left side. We underwent sensory stimulation. There is good sensory stimulation at 0.8 V. We underwent motor stimulation. There is no motor stimulation at 2 V. We then anesthetized these levels with lidocaine and Depo-Medrol. I used a total of 40 mg Depo-Medrol for both levels. I then burned both levels of L4-5 and L5-S1 on the left side for 4 minutes at 80 ?C. Patient tolerated the procedure well with no complication. Plan and Disposition:: We will follow-up with her in 2 weeks. Will reevaluate symptoms at that time. We will plan on RF ablation to the facet joint/medial branches of L4-5 and L5-S1 on the right side at that time.
[2020-09-10 11:14] VITALS: BP 150/90; PULSE 70; RESP 20; O2SAT 98
== END 2020-09-10 11:15 | disposition home or self-care (01) ==
LOC: SC.PAINP 09:53
PROVIDERS: PCP Family Medicine; Visit Provider Anesthesiology
DX: M51.36 Other intervertebral disc degeneration, lumbar region (principal); M54.06 Panniculitis affecting regions of neck and back, lumbar region; M47.816 Spondylosis without myelopathy or radiculopathy, lumbar region; J44.9 Chronic obstructive pulmonary disease, unspecified; K21.9 Gastro-esophageal reflux disease without esophagitis; F41.9 Anxiety disorder, unspecified; F32.9 Major depressive disorder, single episode, unspecified; G43.909 Migraine, unspecified, not intractable, without status migrainosus; Z88.6 Allergy status to analgesic agent; Z88.0 Allergy status to penicillin; Z88.8 Allergy status to other drugs, medicaments and biological substances; Z82.49 Family history of ischemic heart disease and other diseases of the circulatory system
CPT/HCPCS: 64635; 64636; J1040

== ENCOUNTER 2020-09-24 09:52 | Day surgery (SDC) | payer OTHER, SELFPAY ==
[2020-09-24 09:57] VITALS: BP 128/75; PULSE 74; RESP 18; TEMP 36.6; O2SAT 98; BMI 37.8
[2020-09-24 10:28] VITALS: BP 146/83; PULSE 69; RESP 18
[2020-09-24 10:33] VITALS: BP 147/85; PULSE 85; RESP 18; O2SAT 98
--- NOTE | 2020-09-24 10:33 | HMH.PMPROC ---
- Procedure Date: 09/24/20 Time: 10:33 Anesthesiologist:: Joe Prado MD Complications:: None Pre-procedure Diagnosis:: Degenerative disc disease of lumbar spine with lumbar spondylosis and lumbar facet arthropathy Post-procedure Diagnosis:: Same Indications for Procedure:: Patient is a pleasant 65-year-old white female who we are treating for low back pain with lumbar spondylosis and lumbar facet arthropathy. She is doing very well after RF ablation to the facet joints of L4-5 and L5-S1 on the left side. She has been 90% better. We will do the same to the right side today with RF ablation to the facet joint/medial branches of L4-5 and L5-S1. Procedure Details:: Lumbar RFA informed consent was obtained and the risk and benefits of the procedure was explained to the patient. Patient was placed prone on the procedure table. The patient was prepped and draped in sterile fashion. C-arm fluoroscopy was used to view the lumbar spine. The skin and subcutaneous tissues were anesthetized using lidocaine. I placed 20-gauge RF needles into the facet joints of L4-L5 and L5-S1 levels on the right side. We underwent sensory stimulation. There is good sensory stimulation at 0.8 V. We underwent motor stimulation. There is no motor stimulation at 2 V. We then anesthetized these levels with lidocaine and Depo-Medrol. I used a total of 40 mg Depo-Medrol for both levels. I then burned both levels of L4-5 and L5-S1 facet joint/medial branches on the right side for 4 minutes at 80 ?C. Patient tolerated the procedure well with no complication. Plan and Disposition:: We will follow-up with this patient in 2 weeks. Will reevaluate symptoms at that time.
[2020-09-24 10:47] VITALS: BP 129/77; PULSE 68; RESP 18; O2SAT 98
== END 2020-09-24 10:47 | disposition home or self-care (01) ==
LOC: SC.PAINP 09:54
PROVIDERS: PCP Family Medicine; Visit Provider Anesthesiology
DX: M51.36 Other intervertebral disc degeneration, lumbar region (principal); M47.816 Spondylosis without myelopathy or radiculopathy, lumbar region; M54.06 Panniculitis affecting regions of neck and back, lumbar region; M19.90 Unspecified osteoarthritis, unspecified site; E11.9 Type 2 diabetes mellitus without complications; Z88.0 Allergy status to penicillin; Z88.6 Allergy status to analgesic agent; Z88.5 Allergy status to narcotic agent; Z88.8 Allergy status to other drugs, medicaments and biological substances
CPT/HCPCS: 64635; 64636; J1040

== ENCOUNTER → 2020-10-18 10:14 | Outpatient (POV) | payer OTHER, SELFPAY ==
--- NOTE | 2020-10-18 10:44 | HMH.PAINSOAP ---
[facility] Pain Management SOAP Note Subjective:: Patient is a pleasant 65-year-old white female who presents today for follow-up after radiofrequency ablation. Patient was doing extremely well for 3 weeks that she is then since had a flare in her pain rating it a 5 out of 10 however she states it is improving. Patient overall doing well. At this time she does not want any medication or assistance with her current pain level stating that she believes that it is improving. ROS General: no recent weight change, no fever, no sleep disturbances Respiratory: no cough, no shortness of air, no recurring pulmonary infections Cardiovascular/Peripheral Vascular: No chest pain, No palpitations, no edema, no shortness of breath. Gastrointestinal: no new onset incontinence, normal bowel movements reported Genitourinary: no new onset incontinence Musculoskeletal: Back pain Psychiatric: normal mood/ affect Neurological: [denies new onset weakness in extremities], [denies new onset balance issues] Objective:: Physical Exam General: Alert and oriented x3, no acute distress, pleasant and cooperative, [on room air] Lungs: Resps E/U, Symmetrical chest expansion, Eyes: PERRL Musculoskeletal: Flexion and extension of lumbar spine somewhat guarded secondary to pain, deep tendon reflexes normal, strength in upper and lower extremities [5/5], normal gait noted Neurological: speech clear, key bed installer equal, no gross sensory deficits Assessment:: Degenerative disc disease lumbar spine lumbar facet arthropathy and back pain Plan:: We will see the patient back in 1 month reassess her symptoms at that time if she has any worsening pain she has been instructed to call the office. Dr. Prado has reviewed this note and agrees with this plan of care. This note was dictated using voice recognition software and may contain errors or omissions [facility] History I have reviewed the patient's past medical history: Yes Medical History: Reports:: Palpitations Denies:: Cancer, Diabetes Mellitus Type 1, Diabetes Mellitus Type 2, MRSA, Seizures *Have you ever received a pneumonia vaccine?: No *Have you received a flu vaccine this season?: No Other Medical History: Reports: Arthritis. Denies: Blood Transfusion Reaction Other Surgeries: Yes: Cholecystectomy, Colonoscopy, Tubal Ligation Amputation: No Fractures: No - *Social History Smoking Status: Former smoker Tobacco Type: cigarettes Alcohol Intake: never *Occupational Status:: retired Housing: house Household Members: spouse *Travel in the last 8 weeks: None Family Hx:: Unable to obtain
[2020-10-18 11:01] VITALS: BP 126/81; PULSE 85; RESP 18; O2SAT 98; BMI 37.4
== END ==
PROVIDERS: PCP Family Medicine; Visit Provider Clinical Nurse Specialist Family Health
DX: M51.36 Other intervertebral disc degeneration, lumbar region (principal); M54.06 Panniculitis affecting regions of neck and back, lumbar region
CPT/HCPCS: 99212; G0463

== ENCOUNTER → 2020-11-18 10:14 | Outpatient (POV) | payer OTHER, SELFPAY ==
[2020-11-18 10:18] VITALS: BP 143/80; PULSE 82; RESP 18; O2SAT 98; BMI 37.5
--- NOTE | 2020-11-18 10:58 | HMH.PAINSOAP ---
[facility] Pain Management SOAP Note Subjective:: Patient is a 65-year-old white female who presents today for follow-up. She is being treated for degenerative disc disease lumbar spine with facet arthropathy lumbar spine. Patient says she is having worsening pain that is worse with bending forward, with extension at her waist, and turning and twisting at her waist. She did have an RFA of her lumbar spine which she says did not give her much relief. Her pain has returned. She says, however, her pain is different than what she had prior to the RFA. She also reports standing and walking was worsening her pain at this time. She is complaining of neck pain that is also worse with turning her head. She does have a positive Spurling's test today. Patient says that has tried physical therapy for greater than 6 weeks and does continue with home stretching. Anti-inflammatories have been taken in the past with no significant relief. We did discuss taking prednisone 20 mg 1 tablet p.o. twice daily for 5 days to see if this relieves her pain. He would like to proceed with a lumbar epidural steroid injection. She has not had any imaging of her cervical spine. We discussed an MRI of her cervical spine to determine pathology of her pain. She does rate her pain a 7 out of 10 today. Review of Systems General: No recent weight changes, no fever, no sleep disturbances Respiratory: No cough, no shortness of air, no recurring pulmonary infections Cardiovascular/peripheral vascular: No chest pain, no palpitations, no edema, no shortness of breath Gastrointestinal: No new onset incontinence, normal bowel movements reported Genitourinary: No new onset incontinence Musculoskeletal: Neck pain with radiation into bilateral shoulders worse with turning head, low back pain Psychiatric: Normal mood/affect Neurological: [Denies weakness in extremities], [denies balance issues] Objective:: Physical exam General: Alert and oriented x3, no acute distress, pleasant and cooperative, [on room air] Lungs: Respirations even and unlabored, symmetrical chest expansion Eyes: PERRL Musculoskeletal: Flexion and extension of: Cervical and lumbar spine somewhat guarded secondary to pain, deep tendon reflexes normal, strength in upper and lower extremities [5/5], [abnormal gait noted] positive Spurling's test Neurological: Speech clear, neonatal nurse practitioner equal, no gross sensory deficit Assessment:: Degenerative disc disease lumbar spine lumbar facet arthropathy, neck pain Plan:: We will schedule the patient for cervical MRI. She has not had any imaging of her cervical spine. We will also schedule her for a lumbar epidural steroid injection at L4-L5 in 3 weeks. We will give her a week of prednisone 20 mg 1 tablet p.o. twice daily for 5.. Patient is not on any anticoagulation therapy. The RFA did not give the patient any significant relief of her pain. She has not had an epidural according to the patient. We will see her back in the clinic after injection to reevaluate her symptoms and discuss her MRI of her cervical spine. We will continue with home stretching and ice and heat therapies. Risks and benefits of the procedure have been explained to the patient. Patient would like to proceed with the procedure. Dr. Prado has reviewed this note and agrees with this plan of care. This note was dictated using voice recognition software and make contain errors or omissions. [facility] History I have reviewed the patient's past medical history: Yes Medical History: Reports:: Palpitations Denies:: Cancer, Diabetes Mellitus Type 1, Diabetes Mellitus Type 2, MRSA, Seizures *Have you ever received a pneumonia vaccine?: No *Have you received a flu vaccine this season?: No Other Medical History: Reports: Arthritis. Denies: Blood Transfusion Reaction Other Surgeries: Yes: Cholecystectomy, Colonoscopy, Tubal Ligation Amputation: No Fractures: No - *Social History Smoking Status: Former smok
== END ==
PROVIDERS: PCP Family Medicine; Visit Provider Clinical Nurse Specialist Family Health
DX: M51.36 Other intervertebral disc degeneration, lumbar region (principal); M54.06 Panniculitis affecting regions of neck and back, lumbar region; M45.2 Ankylosing spondylitis of cervical region
CPT/HCPCS: 99212; G0463

== ENCOUNTER → 2020-11-20 08:36 | Outpatient (CLI) | payer OTHER, SELFPAY ==
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
== END ==
PROVIDERS: PCP Family Medicine; Visit Provider Clinical Nurse Specialist Family Health
DX: M54.2 Cervicalgia (principal)
CPT/HCPCS: 72141; 76376

== ENCOUNTER 2020-12-10 09:09 | Day surgery (SDC) | payer OTHER, SELFPAY ==
[2020-12-10 09:31] VITALS: BP 123/74; PULSE 69; RESP 18; TEMP 36.6; O2SAT 100; BMI 37.5
[2020-12-10 10:01] VITALS: BP 143/96; PULSE 81; RESP 18; O2SAT 98
[2020-12-10 10:02] VITALS: BP 152/98; PULSE 77; RESP 18; O2SAT 98
[2020-12-10 10:25] VITALS: BP 140/89; PULSE 73; RESP 20; O2SAT 100
--- NOTE | 2020-12-10 11:19 | HMH.PMPROC ---
- Procedure Date: 12/10/20 Time: 11:19 Anesthesiologist:: Leslie Jasso MD Complications:: None Pre-procedure Diagnosis:: Degenerative disc disease of the lumbar spine, lumbar radiculopathy Post-procedure Diagnosis:: Same Indications for Procedure:: Patient is a very pleasant 65-year-old white female who presents with chronic low back pain with lumbar radiculopathy symptoms related to the above diagnosis. She has trialed and failed conservative treatment including oral pain medication, home stretching program, and RFA with minimal relief. Today the plan is for her to undergo lumbar epidural steroid injection at L5-S1 #1. Procedure Details:: Informed consent was obtained and the risk and benefits of the procedure was explained to the patient. The patient was taken to the procedure room. The patient was placed prone on the procedure table. The patient was prepped and draped in sterile fashion. C-arm fluoroscopy was used to view the lumbar spine. Skin and subcutaneous tissues were anesthetized using lidocaine. I placed an 18-gauge epidural needle and advanced into the L5-S1 interspace using fluoroscopic guidance and [id number] to air and saline. After confirmation of needle placement in the epidural space with dye I injected 2 mL of lidocaine 1.5% with Depo-Medrol 80 mg. Patient tolerated the procedure well with no complications. Plan and Disposition:: We will follow-up with this patient in 2 weeks. Will reevaluate pain symptoms at that time.
== END 2020-12-10 10:25 | disposition home or self-care (01) ==
PROVIDERS: PCP Family Medicine; Visit Provider Anesthesiology Pain Medicine
DX: M51.16 Intervertebral disc disorders with radiculopathy, lumbar region (principal); R00.2 Palpitations; M19.90 Unspecified osteoarthritis, unspecified site; Z87.891 Personal history of nicotine dependence; J44.9 Chronic obstructive pulmonary disease, unspecified; F32.9 Major depressive disorder, single episode, unspecified; Z88.0 Allergy status to penicillin; Z88.5 Allergy status to narcotic agent; Z88.6 Allergy status to analgesic agent; Z88.8 Allergy status to other drugs, medicaments and biological substances
CPT/HCPCS: 62323; J1040; Q9966

== ENCOUNTER → 2020-12-30 14:58 | Outpatient (POV) | payer OTHER, SELFPAY ==
[2020-12-30 15:10] VITALS: BP 150/70; PULSE 74; RESP 18; O2SAT 98; BMI 37.4
--- NOTE | 2020-12-30 17:17 | HMH.PAINSOAP ---
[facility] Pain Management SOAP Note Subjective:: Patient is a 65-year-old white female who presents today for follow-up after lumbar epidural steroid injection. This was her #1 lumbar epidural steroid injection at L5-S1. Patient says that she did not get any relief after the injection. She has been treated for degenerative disc disease lumbar spine with lumbar radiculopathy symptoms. Patient says that she has also had RFA with minimal relief. She has tried physical therapy for more than 6 weeks along with oral medications and continued home stretching. She is having pain in her mid to low back area with radiation into bilateral legs and to her feet. She is also having pain between her shoulders. She says she cannot sleep due to the pain and she is having drawling of her feet at bedtime. She has to stand to walk to get some relief. She reports that she became nauseous and sick to her stomach after her last injections. She rates her pain an 8 out of 10 today. She and I did discuss possible work-up of intrathecal therapy versus spinal cord stimulation. She was managed with gabapentin in the past which did not give her much relief. We did discuss trying Lyrica. She would like to try this to see if she will. We we will also review her MRI of her cervical spine. Review of Systems General: No recent weight changes, no fever, no sleep disturbances Respiratory: No cough, no shortness of air, no recurring pulmonary infections Cardiovascular/peripheral vascular: No chest pain, no palpitations, no edema, no shortness of breath Gastrointestinal: No new onset incontinence, normal bowel movements reported Genitourinary: No new onset incontinence Musculoskeletal: Neck pain, low back pain, bilateral foot pain and leg pain Psychiatric: Normal mood/affect Neurological: [Denies weakness in extremities], [denies balance issue Objective:: Physical exam General: Alert and oriented x3, no acute distress, pleasant and cooperative, [on room air] Lungs: Respirations even and unlabored, symmetrical chest expansion Eyes: PERRL Musculoskeletal: Flexion and extension of [] lumbar and cervical spine somewhat guarded secondary to pain, deep tendon reflexes normal, strength in upper and lower extremities [5/5], [abnormal gait noted] Neurological: Speech clear, transportation refrigeration technician equal, no gross sensory deficit Assessment:: Degenerative disc disease cervical and lumbar spine with cervical lumbar radiculopathy symptoms Plan:: Patient did not get any relief with her RFA or #1 lumbar epidural steroid injection. We will start her on Lyrica 75 mg 1 tablet p.o. twice daily. We will see her back in 2 weeks. She was given educational information today regarding possible spinal cord stimulation versus intrathecal therapy. She tried failed all conservative therapies that we are able to offer her in the clinic. If she does not feel that intrathecal therapy or spinal cord stimulation is an option for her. She may need to seek alternative treatments in clinics that can offer oral medications. We will see her back in the clinic in 2 weeks to see if Lyrica has helped and to discuss any concerns she may have with implanted devices. Risks and benefits of the medication have been explained in detail to the patient. The patient has been advised to consult with his/her primary care provider and pharmacist regarding drug-drug interaction of medications currently prescribed. Patient has been instructed to contact the clinic with any concerns before the next appointment. Dr. Prado has reviewed this note and agrees with this plan of care. This note was dictated using voice recognition software and make contain errors or omissions. [facility] History I have reviewed the patient's past medical history: Yes Medical History: Reports:: Palpitations Denies:: Cancer, Diabetes Mellitus Type 1, Diabetes Mellitus Type 2, MRSA, Seizures *Have you ever received a pneumonia vaccine?: No *Have you receiv
== END ==
PROVIDERS: PCP Family Medicine; Visit Provider Clinical Nurse Specialist Family Health
DX: M50.10 Cervical disc disorder with radiculopathy, unspecified cervical region (principal)
CPT/HCPCS: 99212; G0463

== ENCOUNTER → 2021-01-13 14:36 | Outpatient (POV) | payer OTHER, SELFPAY ==
[2021-01-13 14:41] VITALS: BP 136/77; PULSE 66; RESP 20; O2SAT 100; BMI 37.8
--- NOTE | 2021-01-13 14:51 | HMH.PAINSOAP ---
[facility] Pain Management SOAP Note Subjective:: Patient is a 65-year-old white female who presents today for follow-up. At last visit, the patient was started on Lyrica. She is being treated for degenerative disc disease lumbar spine with lumbar radiculopathy symptoms. She is had #1 epidural steroid injection at L5-S1. Patient did not get any relief. She is also has had RFA with minimal relief. She has tried physical therapy with no significant relief as well as home stretching and anti-inflammatories. She reports to have gotten sick after her last injection therapy. She says she had nausea and vomiting immediately after. Patient was started on Lyrica at the last visit, however, the medication was not approved by her insurance. Patient I did discuss gabapentin. She has taken this in the past at 300 mg 1 tablet p.o. 3 times daily. She has not had the medication since August, however. Discussed starting this medication once again to see if she gets relief. We would start at 300 mg 1 tablet p.o. daily. Patient and I did discuss intrathecal versus spinal cord stimulation implanted devices, however, she has deferred at this time. We will order her gabapentin 300 mg 1 tablet p.o. daily and see her back in 2 weeks and plan to increase to 3 times daily if she is able to tolerate the medication. Review of Systems General: No recent weight changes, no fever, no sleep disturbances Respiratory: No cough, no shortness of air, no recurring pulmonary infections Cardiovascular/peripheral vascular: No chest pain, no palpitations, no edema, no shortness of breath Gastrointestinal: No new onset incontinence, normal bowel movements reported Genitourinary: No new onset incontinence Musculoskeletal: Low back pain with radiation into lower extremities Psychiatric: [Normal mood/affect] Neurological: [Denies weakness in extremities], [denies balance issues] Objective:: Physical exam General: Alert and oriented x3, no acute distress, pleasant and cooperative, [on room air] Lungs: Respirations even and unlabored, symmetrical chest expansion Eyes: PERRL Musculoskeletal: Flexion and extension of [] lumbar [spine] somewhat guarded secondary to pain, strength in upper and lower extremities [5/5], [antalgic gait noted] Neurological: Speech clear, [hand miter operator equal], no gross sensory deficit Assessment:: Degenerative disc disease lumbar spine with lumbar radiculopathy symptoms Plan:: We will start the patient on gabapentin 300 mg 1 tablet p.o. daily. We will give her 2 weeks medication plan to see her back in the clinic in 2 weeks to see if she is able to tolerate the medication. If she is, we will increase her to 300 mg 1 tablet p.o. 3 times daily. Risks and benefits of the procedure have been explained to the patient. Patient would like to proceed with the procedure. Patient has been instructed to contact the clinic with any concerns before the next appointment. Dr. Prado has reviewed this note and agrees with this plan of care. This note was dictated using voice recognition software and make contain errors or omissions. [facility] History I have reviewed the patient's past medical history: Yes Medical History: Reports:: Palpitations Denies:: Cancer, Diabetes Mellitus Type 1, Diabetes Mellitus Type 2, MRSA, Seizures *Have you ever received a pneumonia vaccine?: No *Have you received a flu vaccine this season?: No Other Medical History: Reports: Arthritis. Denies: Blood Transfusion Reaction Other Surgeries: Yes: Cholecystectomy, Colonoscopy, EGD, Tubal Ligation Amputation: No Fractures: No - *Social History Smoking Status: Former smoker Tobacco Type: cigarettes Alcohol Intake: never *Occupational Status:: retired Housing: house Household Members: spouse *Travel in the last 8 weeks: None Family Hx:: Unable to obtain
== END ==
PROVIDERS: Visit Provider Clinical Nurse Specialist Family Health
DX: M51.16 Intervertebral disc disorders with radiculopathy, lumbar region (principal)
CPT/HCPCS: 99212; G0463

== ENCOUNTER → 2021-01-27 14:30 | Outpatient (POV) | payer OTHER, SELFPAY ==
[2021-01-27 14:38] VITALS: BP 158/89; PULSE 74; RESP 18; TEMP 36.8; O2SAT 97; BMI 37.8
--- NOTE | 2021-01-27 15:27 | HMH.PAINSOAP ---
[facility] Pain Management SOAP Note Subjective:: Is a 65-year-old white female who presents today for medication refills. She is being treated for degenerative disc disease lumbar spine lumbar radiculopathy lumbar spondylosis and facet arthropathy. Patient has had RFA with minimal relief to her lower back area. She is complaining today of neck pain with radiation into her bilateral shoulders. The pain is worse with turning her head from side to side and up and down. She says that she has tried taking tramadol in the past with no significant relief. She does have significant arthritis and says tramadol and and any relief. She also takes gabapentin 300 mg 1 tablet p.o. 3 times daily. It does give her some relief, at about 40%. She says, however, it does not give her long-term relief. We did discuss increasing the dose if she is able to tolerate the increase. Patient says that she is having a locking sensation to her neck when she is turning her head with dizziness vaginally as well. She says bending forward causes her to have pain in her neck sleep at night due to pain. She has tried new pillows with no relief. She does continue with modified home stretching program. Review of Systems General: No recent weight changes, no fever, no sleep disturbances Respiratory: No cough, no shortness of air, no recurring pulmonary infections Cardiovascular/peripheral vascular: No chest pain, no palpitations, no edema, no shortness of breath Gastrointestinal: No new onset incontinence, normal bowel movements reported Genitourinary: No new onset incontinence Musculoskeletal: Neck pain with radiation into bilateral shoulders, chronic low back pain Psychiatric: [Normal mood/affect] Neurological: [Denies weakness in extremities], [denies balance issues] Objective:: Physical exam General: Alert and oriented x3, no acute distress, pleasant and cooperative, [on room air] Lungs: Respirations even and unlabored, symmetrical chest expansion Eyes: PERRL Musculoskeletal: Flexion and extension of [] cervical and lumbar [spine] somewhat guarded secondary to pain, strength in upper and lower extremities [5/5], [antalgic gait noted] positive Spurling's test Neurological: Speech clear, [river rat equal], no gross sensory deficit Assessment:: Degenerative disc disease cervical spine with cervical facet arthropathy, degenerative disc disease lumbar spine with lumbar facet arthropathy and spondylosis lumbar spine Plan:: We will schedule the patient for medial branch block/facet joint injection at C5-C6 C6-C7. Patient is not on any anticoagulation therapy. We will increase her gabapentin 300 mg 1 tablet p.o. 4 times daily as tolerable. If patient is unable to tolerate the medication she will need to decrease back to 3 times daily. The patient does have a positive Spurling's test today. We will see her back after her injection for reevaluation of symptoms. She will continue with home stretching. Risks and benefits of the procedure have been explained to the patient. Patient would like to proceed with the procedure. Possible side effects of corticosteroids have been discussed with the patient. Patient has been instructed to contact the clinic with any concerns before the next appointment. Dr. Prado has reviewed this note and agrees with this plan of care. This note was dictated using voice recognition software and make contain errors or omissions. [facility] History I have reviewed the patient's past medical history: Yes Medical History: Reports:: Palpitations Denies:: Cancer, Diabetes Mellitus Type 1, Diabetes Mellitus Type 2, MRSA, Seizures *Have you ever received a pneumonia vaccine?: Yes *Have you received a flu vaccine this season?: No Other Medical History: Reports: Arthritis. Denies: Blood Transfusion Reaction Other Surgeries: Yes: Cholecystectomy, Colonoscopy, EGD, Tubal Ligation Amputation: No Fractures: No - *Social History Smoking Status: Former smok
== END ==
PROVIDERS: Visit Provider Clinical Nurse Specialist Family Health
DX: M50.10 Cervical disc disorder with radiculopathy, unspecified cervical region (principal); M54.02 Panniculitis affecting regions of neck and back, cervical region; M51.36 Other intervertebral disc degeneration, lumbar region; M47.816 Spondylosis without myelopathy or radiculopathy, lumbar region
CPT/HCPCS: 99212; G0463

== ENCOUNTER 2021-02-04 09:00 | Day surgery (SDC) | payer OTHER, SELFPAY ==
[2021-02-04 09:11] VITALS: BP 144/77; PULSE 82; RESP 19; TEMP 36.7; O2SAT 98; BMI 37.8
[2021-02-04 09:21] VITALS: BP 166/80; PULSE 81; RESP 18; O2SAT 95
[2021-02-04 09:26] VITALS: BP 183/93; PULSE 84; RESP 18; O2SAT 97
[2021-02-04 09:39] VITALS: BP 156/71; PULSE 72; RESP 20; O2SAT 98
--- NOTE | 2021-02-04 09:43 | P.PCN_ITS ---
- Procedure Date: 02/04/21 Time: 09:43 Anesthesiologist:: Joe Prado MD Complications:: None Pre-procedure Diagnosis:: Degenerative disc disease of the cervical spine with cervical spondylosis and cervical facet arthropathy Post-procedure Diagnosis:: Same Indications for Procedure:: This patient is a pleasant 65-year-old white female who we are treating for neck pain with cervical spondylosis and cervical facet arthropathy. She has increasing neck pain with radiation to both shoulders. She has increased pain with turning her head with extension. We will do bilateral cervical medial branch blocks of C5-C6 and C6-C7 today to see if this helps with her pain symptoms. Procedure Details:: Cervical medial branch block Informed consent was obtained and the risk and benefits of the procedure was explained to the patient. The patient was into the procedure room and placed prone on the procedure table. The neck was prepped using ChloraPrep. C-arm f luoroscopy was used to view the cervical spine. The skin and subcutaneous tissues were anesthetized lidocaine. I placed 22-gauge spinal needles into the facet joints of C5-6, C6-7 bilaterally. Needle placement was confirmed with dye. After this I injected 2 mL lidocaine 1.5% into each facet joint/medial branch of C5-6, C6-7 bilaterally. Patient tolerated the procedure well with no complications. Plan and Disposition:: If these are successful then we may proceed with RF ablation to the facet joint/medial branches of C5-C6 and C6-C7 bilaterally. Patient does have some increasing low back pain which was not relieved with previous injections and RFA. She also has neck pain. I do believe she would be a good candidate for intrathecal therapy to help with her neck and low back pain which seems to be more axial in origin. She is allergic to morphine so we will seek approval for a intrathecal bupivacaine pump trial. This will be with bupivacaine 3 mg.
== END 2021-02-04 09:40 | disposition home or self-care (01) ==
LOC: SC.PAINP 09:02
PROVIDERS: PCP Family Medicine; Visit Provider Anesthesiology
DX: M50.30 Other cervical disc degeneration, unspecified cervical region (principal); M47.812 Spondylosis without myelopathy or radiculopathy, cervical region; M54.02 Panniculitis affecting regions of neck and back, cervical region; R00.2 Palpitations; M19.90 Unspecified osteoarthritis, unspecified site; Z87.891 Personal history of nicotine dependence; Z88.0 Allergy status to penicillin; Z88.6 Allergy status to analgesic agent
CPT/HCPCS: 64490; 64491; Q9966

== ENCOUNTER → 2021-03-07 09:04 | Outpatient (POV) | payer OTHER, SELFPAY ==
[2021-03-07 09:08] VITALS: BP 135/82; PULSE 70; RESP 18; O2SAT 98; BMI 37.8
--- NOTE | 2021-03-07 09:16 | HMH.PAINSOAP ---
[facility] Pain Management SOAP Note Subjective:: Patient is a 65-year-old white female who presents today for follow-up. The patient is being treated for degenerative disc disease cervical and lumbar spine with cervical and lumbar spondylosis and facet arthropathy. The patient recently underwent medial branch block/facet joint injections at C5-C6 C6-C7 area. She reports she got 2 days of relief at about 70%. Patient's pain has returned. She has also undergone medial branch blocks to her lumbar spine. As well, she has had RFA to her lumbar spine. She got up to 2 to 3 months of relief following the RFA. She is having pain in her neck as well as low back pain with radiation into her leg and waist on the right side. She says she is having severe pain in her bilateral knees today. Patient is increased with her gabapentin at last visit on 01/28/2021 with gabapentin 300 mg 1 tablet p.o. 4 times daily. The patient says that it helped her initially, but is no longer giving her significant relief. We have discussed Lyrica in the past, but the patient's insurance did not approve Lyrica for her. She would like to try taking 2 tablets - 600 mg today. If she gets relief we will change the patient's dosing to gabapentin 300 mg 2 tablets p.o. 3 times daily. She will contact the clinic today regarding the medication. She will inform us if she has any side effects to the medicine. Patient did discuss intrathecal therapy with Dr. Prado on the day of her injective therapy. She does want to proceed with the trial. Patient has not had a psychological evaluation. Today, the patient's pain is a 7 or an 8 out of 10. The patient has tried and failed injective therapy which include medial branch block/facet joint injections, RFA, and epidural steroid injections. She is continue with a home stretching program. She has tried physical therapy for greater than 6 weeks. She has also tried anti-inflammatories with no significant relief. She uses ice and heat therapies. Review of Systems General: No recent weight changes, no fever, no sleep disturbances Respiratory: No cough, no shortness of air, no recurring pulmonary infections Cardiovascular/peripheral vascular: No chest pain, no palpitations, no edema, no shortness of breath Gastrointestinal: No new onset incontinence, normal bowel movements reported Genitourinary: No new onset incontinence Musculoskeletal: Neck and low back pain worse with any type of movement, bilateral arm and leg pain with numbness and tingling Psychiatric: [Normal mood/affect] Neurological: [Denies weakness in extremities], [denies balance issues] Objective:: Physical exam General: Alert and oriented x3, no acute distress, pleasant and cooperative, [on room air] Lungs: Respirations even and unlabored, symmetrical chest expansion Eyes: PERRL Musculoskeletal: Flexion and extension of cervical and lumbar [spine] somewhat guarded secondary to pain, strength in upper and lower extremities [5/5], [antalgic gait noted] Neurological: Speech clear, [assembler watch train equal], no gross sensory deficit Assessment:: Degenerative disc disease cervical and lumbar spine with cervical and lumbar facet arthropathy and lumbar/cervical spondylosis, cervical lumbar radiculopathy Plan:: We will schedule the patient for psychological evaluation. She did discuss intrathecal therapy with Dr. Prado at her previous visit. The patient only got 2 days of relief with the medial branch block. She only got 2 to 3 months of relief with an RFA of her lumbar spine. She has had epidural steroid injections as well as medial branch blocks and RFA's. She gets minimal relief for short periods of time. She has tried physical therapy for greater than 6 weeks and continues with home stretching. She does continue to use ice and heat therapies as well. She is currently on gabapentin which is not giving her significant relief. We did attempt to order the patient Lyrica but was denied
== END ==
PROVIDERS: Visit Provider Clinical Nurse Specialist Family Health
DX: M50.10 Cervical disc disorder with radiculopathy, unspecified cervical region (principal); M47.896 Other spondylosis, lumbar region
CPT/HCPCS: 99212; G0463

== ENCOUNTER → 2021-04-28 08:55 | Outpatient (POV) | payer OTHER, SELFPAY ==
[2021-04-28 09:05] VITALS: BP 141/86; PULSE 76; RESP 18; O2SAT 98; BMI 39.3
--- NOTE | 2021-04-28 09:13 | HMH.PAINSOAP ---
[facility] Pain Management SOAP Note Subjective:: Patient is a 65-year-old white female who presents today for follow-up. The patient is having persistent pain in her neck and low back area. We have managed the patient with injective therapy with epidural steroid injections as well as facet injections and RFA's. Patient reports she got 3 months of relief following the RFA, but pain did return. She is now having difficulty standing due to pain in her bilateral lower extremities along with neuropathy in her feet. She says the pain does radiate into the groin area. She says that sitting does not seem to help the pain. Movement worsens her pain. The pain today is at its worst to the left knee. She has not had any recent imaging. She is having swelling into the left knee 2 to 3 days/week. She is rating her pain an 8 out of 10. The patient has tried gabapentin with an increase in her dose at last visit. Patient is very sensitive to most medications. Lyrica was not approved by the patient's insurance. She does continue with [id number] medication management with minimal relief. She has tried physical therapy for more than 6 weeks and continues with home stretching. She has tried ice and heat therapies. Patient has had injective therapy for both neck and low back with no long-term relief. The patient was sent for a psychological evaluation and was considered an appropriate candidate for intrathecal therapy versus spinal cord stimulation. Review of Systems General: No recent weight changes, no fever, no sleep disturbances Respiratory: No cough, no shortness of air, no recurring pulmonary infections Cardiovascular/peripheral vascular: No chest pain, no palpitations, no edema, no shortness of breath Gastrointestinal: No new onset incontinence, normal bowel movements reported Genitourinary: No new onset incontinence Musculoskeletal: Low back pain with radiation into bilateral knees and legs/feet, chronic neck pain Psychiatric: [Normal mood/affect] Neurological: [Denies weakness in extremities], [denies balance issues] Objective:: Physical exam General: Alert and oriented x3, no acute distress, pleasant and cooperative Lungs: Respirations even and unlabored, symmetrical chest expansion Eyes: PERRL Musculoskeletal: Flexion and extension of cervical and lumbar [spine] somewhat guarded secondary to pain, [antalgic gait noted] Neurological: Speech clear, no gross sensory deficit Assessment:: Degenerative disc disease lumbar spine with lumbar radiculopathy symptoms, lumbar spondylosis and lumbar facet arthropathy, degenerative disc disease cervical spine with cervical radiculopathy symptoms with cervical spondylosis and cervical facet arthropathy Plan:: Patient has not gotten any significant relief with conservative therapies in the clinic. She was increased with gabapentin at last visit and continues to have worsening pain. She is allergic to many medications and is concerned with proceeding with intrathecal therapy at this time. She has decided she would like to try a spinal cord stimulator trial. The psychological evaluation did deemed the patient appropriate candidate. Today, the patient's pain is at its worst into the left knee. She is having edema to the area as well. She is having difficulty standing and walking with pain. We will send the patient for x-rays bilateral knees. We will also schedule patient for trial for spinal cord stimulation. Patient does report to be diabetic with blood sugars between 120s 160s. She is not on any anticoagulation therapy. Patient will continue with gabapentin for neuropathic pain 600 mg 1 tablet p.o. 3 times daily. Patient's Slava #[id number] has been reviewed and is appropriate. Morphine equivalent is 0. We will see the patient back after her trial for reevaluation of symptoms. Risks and benefits of the procedure have been explained to the patient. Patient would like to proceed w
== END ==
PROVIDERS: Visit Provider Clinical Nurse Specialist Family Health
DX: M51.16 Intervertebral disc disorders with radiculopathy, lumbar region (principal); M54.06 Panniculitis affecting regions of neck and back, lumbar region; M47.896 Other spondylosis, lumbar region; M50.10 Cervical disc disorder with radiculopathy, unspecified cervical region; M54.02 Panniculitis affecting regions of neck and back, cervical region; M47.892 Other spondylosis, cervical region
CPT/HCPCS: 99212; G0463

== ENCOUNTER → 2021-04-28 09:25 | Outpatient (CLI) | payer OTHER, SELFPAY ==
--- NOTE | 2021-04-28 09:33 | XR_ITS ---
PROCEDURE: XR KNEE LT 3V CLINICAL INDICATION: BILAT KNEE PAIN COMPARISON: CR XR KNEE RT 3V from 04/28/2021 FINDINGS: No fracture or dislocation. No lytic or blastic change. There is normal mineralization. Slight decrease in the joint space medially with minimal osteosclerosis of the medial femoral condyle. Minimal spurring live long the posterior patella. Other findings:None. IMPRESSION: Mild osteoarthritis Dictated by: Omari Crystal MD 04/28/2021 14:51 Omari Crystal MD in [place] 04/28/2021 14:51
--- NOTE | 2021-04-28 09:33 | XR_ITS ---
PROCEDURE: XR KNEE RT 3V CLINICAL INDICATION: BILAT KNEE PAIN COMPARISON: No exams were available for comparison FINDINGS: No fracture or dislocation. No lytic or blastic change. There is normal mineralization. Minimal osteoarthritic change of the patellofemoral joint and medial compartment. There is mild sclerosis along the medial femoral condyle. Other findings:None. IMPRESSION: Mild osteoarthritic changes Dictated by: Omari Crystal MD 04/28/2021 14:48 Omari Crystal MD in [place] 04/28/2021 14:48
== END ==
PROVIDERS: PCP Family Medicine; Visit Provider Anesthesiology
DX: M25.562 Pain in left knee (principal); M25.561 Pain in right knee
CPT/HCPCS: 73562

== ENCOUNTER → 2021-08-22 14:47 | Outpatient (POV) | payer MEDICARE, OTHER, SELFPAY ==
[2021-08-22 15:03] VITALS: BP 173/77; PULSE 72; RESP 20; TEMP 36.2; O2SAT 98; BMI 38.2
--- NOTE | 2021-08-22 15:45 | HMH.PAINSOAP ---
[facility] Pain Management SOAP Note Subjective:: Patient is a pleasant 65-year-old female who is here today for follow-up. We last saw this patient in April 2021. Patient has had several epidural injections, facet injections, RFA's with no lasting relief. She is a good candidate for a spinal cord stimulator. In April, we had referred the patient for a psychiatric eval for spinal cord stimulator trial and she was deemed appropriate for this procedure. Today, patient is complaining of worsening low back pain that radiates to bilateral lower extremities. Patient says that she is ready to be scheduled for a spinal cord stimulator. Additionally, patient is also complaining of right knee pain that she feels like is giving up on her when she tries to get up the steps. She has had x-rays on her right knee which showed arthritis. She has not had any intra-articular knee injections in the past. She rates her pain today as 9 out of 10. ODT score is low risk Review of Systems General: No recent weight changes, no fever, no sleep disturbances Respiratory: No cough, no shortness of air, no recurring pulmonary infections Cardiovascular/peripheral vascular: No chest pain, no palpitations, no edema, no shortness of breath Gastrointestinal: No new onset incontinence, normal bowel movements reported Genitourinary: No new onset incontinence Musculoskeletal: Low back pain, right knee pain Psychiatric: [Normal mood/affect] Neurological: [Denies weakness in extremities], [denies balance issues] Objective:: Physical exam General: Alert and oriented x3, no acute distress, pleasant and cooperative Lungs: Respirations even and unlabored, symmetrical chest expansion Eyes: PERRL Musculoskeletal: Flexion and extension of lumbar [spine] somewhat guarded secondary to pain; patient has limited range of motion of her right knee secondary to pain Neurological: Speech clear, no gross sensory deficit Assessment:: Degenerative disc disease of the lumbar spine with lumbar radiculopathy symptoms Osteoarthritis of the right knee Plan:: Patient has tried and failed conservative therapies such as oral medications, injective therapy, RFA's, physical therapy, and at home exercise for greater than 6 weeks. Per her psych eval, she is appropriate and competent to get a spinal cord stimulator trial. We will schedule the patient for a spinal cord stimulator trial. Risk and Benefits of this procedure has been discussed with the patient. Patient would like to proceed with this procedure. We will also schedule patient for a right knee intra-articular injection. We will continue her gabapentin 600 mg 3 times a day. We will provide the patient with 3 months worth of refills. Patient has been instructed to contact the clinic with any concerns before the next appointment. This note was dictated using voice recognition software and may contain errors or omissions. [facility] History Medical History: Reports:: Diabetes Mellitus Type 2, Palpitations Denies:: Cancer, Diabetes Mellitus Type 1, MRSA, Seizures *Have you ever received a pneumonia vaccine?: No *Have you received a flu vaccine this season?: Yes Other Medical History: Reports: Arthritis. Denies: Blood Transfusion Reaction Other Surgeries: Yes: Cholecystectomy, Colonoscopy, EGD, Tubal Ligation Amputation: No Fractures: No - *Social History Smoking Status: Former smoker Tobacco Type: cigarettes Alcohol Intake: never *Occupational Status:: other Housing: house Household Members: spouse *Travel in the last 8 weeks: None Family Hx:: Unable to obtain
== END ==
PROVIDERS: Visit Provider Student in an Organized Health Care Education/Training Program
DX: M51.16 Intervertebral disc disorders with radiculopathy, lumbar region (principal); M17.11 Unilateral primary osteoarthritis, right knee
CPT/HCPCS: 99212; G0463

== ENCOUNTER 2021-09-02 11:19 | Day surgery (SDC) | payer MEDICARE, OTHER, SELFPAY ==
[2021-09-02 11:25] VITALS: BP 150/84; PULSE 74; RESP 20; TEMP 37.1; O2SAT 97; BMI 38.2
[2021-09-02 11:33] VITALS: BP 190/96; BP 192/94; PULSE 84; PULSE 88; RESP 20; O2SAT 98; O2SAT 99
--- NOTE | 2021-09-02 11:47 | P.PCN_ITS ---
- Procedure Date: 09/02/21 Time: 11:47 Anesthesiologist:: Joe Prado MD Complications:: None Pre-procedure Diagnosis:: Right knee pain with degenerative osteoarthritis Post-procedure Diagnosis:: Same Indications for Procedure:: Patient is a pleasant 65-year-old white female who we are treating for right- sided knee pain. She has degenerative osteoarthritis. We will plan on right knee intra-articular injection today to help her with her pain symptoms. Procedure Details:: Right knee intra-articular injection Informed consent was obtained the risk and benefits of the procedure were explained to the patient. Patient was taken to the procedure room. The right knee was prepped using ChloraPrep. A 25-gauge needle was used first medially then laterally to inject 10 mL bupivacaine 0.25% and Depo-Medrol 40 mg into the right knee joint. The patient tolerated the procedure well with no complications. Plan and Disposition:: We will follow-up with her in 2 weeks. Will reevaluate symptoms at that time.
[2021-09-02 11:48] VITALS: BP 155/87; PULSE 82; RESP 20; O2SAT 97
== END 2021-09-02 11:49 | disposition home or self-care (01) ==
LOC: SC.PAINP 11:21
PROVIDERS: PCP Family Medicine; Visit Provider Anesthesiology
DX: M17.11 Unilateral primary osteoarthritis, right knee (principal); M51.16 Intervertebral disc disorders with radiculopathy, lumbar region; E11.9 Type 2 diabetes mellitus without complications; R00.2 Palpitations; J44.9 Chronic obstructive pulmonary disease, unspecified; K21.9 Gastro-esophageal reflux disease without esophagitis; M19.90 Unspecified osteoarthritis, unspecified site; Z87.891 Personal history of nicotine dependence; Z88.0 Allergy status to penicillin; Z88.6 Allergy status to analgesic agent; Z88.5 Allergy status to narcotic agent; Z88.8 Allergy status to other drugs, medicaments and biological substances
CPT/HCPCS: 20610; J1040

== ENCOUNTER → 2021-09-12 13:52 | Outpatient (POV) | payer MEDICARE, OTHER, SELFPAY ==
[2021-09-12 14:21] VITALS: BP 150/82; PULSE 70; RESP 18; TEMP 36.1; O2SAT 97; BMI 38.2
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
== END ==
PROVIDERS: Visit Provider Student in an Organized Health Care Education/Training Program
DX: M51.16 Intervertebral disc disorders with radiculopathy, lumbar region (principal); M17.0 Bilateral primary osteoarthritis of knee
CPT/HCPCS: 99212; G0463

== ENCOUNTER → 2021-09-21 09:01 | Outpatient (CLI) | payer MEDICARE, OTHER, SELFPAY ==
--- NOTE | 2021-09-21 09:07 | MR_ITS ---
FINAL REPORT CLINICAL HISTORY: BACK PAIN COMPARISON: 06/04/2020 FINDINGS: Multiplanar MR imaging of the lumbar spine was performed without contrast. On the sagittal T2-weighted images, disc degeneration is seen throughout with endplate changes at multiple levels. The vertebral alignment is normal. There is no evidence of fracture. The conus has an unremarkable appearance. L3-4: An annular bulge is present. Facet arthropathy and osteophytes are present. There is moderate right and mild left neural foraminal narrowing. L4-5: An annular bulge is present. Facet arthropathy and osteophytes are present. There is mild bilateral neural foraminal narrowing. L5-S1: An annular bulge is present. Facet arthropathy and osteophytes are present. There is mild right and moderate left neural foraminal narrowing. IMPRESSION: Multilevel degenerative disc disease and spondylosis. Reviewed, Interpreted and Dictated by Darwin Delatorre III, MD Transcribed by Dana Peoples Authenticated by Darwin Delatorre III, MD on 09/21/2021 03:28:43 PM [facility]
== END ==
PROVIDERS: PCP Family Medicine; Visit Provider Student in an Organized Health Care Education/Training Program
DX: M54.50 Low back pain, unspecified (principal)
CPT/HCPCS: 72148; 76376

== ENCOUNTER 2021-09-23 08:43 | Day surgery (SDC) | payer MEDICARE, OTHER, SELFPAY ==
[2021-09-23 09:08] VITALS: BP 139/76; BP 142/85; PULSE 68; PULSE 72; RESP 20; TEMP 36.2; O2SAT 94; O2SAT 97; O2SAT 98; BMI 38.2
[2021-09-23 09:22] VITALS: BP 137/88; PULSE 70; RESP 20; TEMP 36.3; O2SAT 97
--- NOTE | 2021-09-23 11:38 | HMH.PMPROC ---
- Procedure Date: 09/23/21 Time: 11:38 Anesthesiologist:: Bakari Strong CRNA Complications:: None Pre-procedure Diagnosis:: Left knee joint pain. Left knee arthritis. Post-procedure Diagnosis:: Same Indications for Procedure:: Patient is a very pleasant 66-year-old white female that comes to our clinic today for left genicular nerve block. She has been treated with intra-articular cortisone in the past without much relief. Procedure Details:: Details of the procedure were explained to the patient. The patient was taken to the fluoroscopy room and placed in the supine position. The left knee was positioned. Cleansed with chlorhexidine as a cleansing solution. The solution was then allowed to dry. The injection sites were then infiltrated with 2 cc of 1% lidocaine. A 22-gauge by 3-1/2 inch spinal needle was used to access under fluoroscopy guidance until contact was made the junction of the femoral diaphysis and the medial femoral epicondyle. A second spinal needle was used and advanced under fluoroscopy guidance to make contact with the femoral diaphysis and the lateral femoral epicondyle. A third needle was advanced in a similar manner to make contact with the tibial diaphysis and medial tibial condyle. Lateral images were taken to confirm that the needle tips were at the midpoint of the femur and tibia. After negative aspiration, 2 cc of a solution containing 0.25% bupivacaine and 20 mg of methylprednisolone was injected into each of the needles. The needles were removed intact. The patient tolerated the procedure without difficulty. Plan and Disposition:: Patient reports minimal if any pain in the left knee 10 minutes postinjection. She was discharged without incident. She will return to see us in the clinic for follow-up.
== END 2021-09-23 09:23 | disposition home or self-care (01) ==
LOC: SC.PAINP 08:44
PROVIDERS: PCP Family Medicine; Visit Provider Nurse Anesthetist, Certified Registered
DX: M17.12 Unilateral primary osteoarthritis, left knee (principal); E11.9 Type 2 diabetes mellitus without complications; R00.2 Palpitations; Z88.0 Allergy status to penicillin; Z88.6 Allergy status to analgesic agent; Z88.5 Allergy status to narcotic agent; Z88.8 Allergy status to other drugs, medicaments and biological substances
CPT/HCPCS: 64454; J1040

== ENCOUNTER → 2021-10-10 10:35 | Outpatient (POV) | payer MEDICARE, OTHER, SELFPAY ==
[2021-10-10 10:47] VITALS: BP 142/81; PULSE 95; RESP 18; TEMP 36.6; O2SAT 95; BMI 37.8
--- NOTE | 2021-10-10 12:29 | HMH.PAINSOAP ---
[facility] Pain Management SOAP Note Subjective:: This patient is a 66-year-old white female returns our clinic today for a follow-up visit. Patient underwent a genicular nerve block of the left knee on 09/23/2021. Patient reports significant improvement terms of her left knee pain. Patient states the pain is 6/10. However, patient also having some right knee pain. Her main complaint today is low back pain with bilateral leg cramping. She states the pain in her back is 6/10. However, when standing or sitting for an length time the pain increases to 10/10. Patient also complained of leg cramps in the lower leg during the night. Patient has degenerative disc disease lumbar spine. Upon examination the patient has extreme point tenderness over the bilateral SI joints. I talked at length with the patient regarding SI joint pain. Also, lateral SI joint injections. She wishes to proceed. Objective:: Patient is awake alert oriented x3. In no acute distress. Flexion-extension lumbar spine somewhat guarded secondary to pain. Deep tendon reflexes upper lower extremities normal. Motor strength upper and lower extremities normal. There is no gross sensory deficit. Gait is normal. Assessment:: Generative disc disease lumbar spine. Osteoarthritis bilateral knees. Bilateral sacroiliitis. Bilateral hip and leg radicular symptoms. Plan:: I discussed in detail with the patient regarding bilateral SI joint injections. She wishes to proceed. Also, patient continues with 600 mg gabapentin 3 times daily. Patient states the gabapentin helps with her bilateral leg pain. Her Slava [id number] is been reviewed and appropriate. [facility] History Medical History: Reports:: Diabetes Mellitus Type 2, Palpitations Denies:: Cancer, Diabetes Mellitus Type 1, MRSA, Seizures *Have you ever received a pneumonia vaccine?: No *Have you received a flu vaccine this season?: Yes Other Medical History: Reports: Arthritis. Denies: Blood Transfusion Reaction Other Surgeries: Yes: Cholecystectomy, Colonoscopy, EGD, Tubal Ligation Amputation: No Fractures: No - *Social History Smoking Status: Former smoker Tobacco Type: cigarettes Alcohol Intake: never *Occupational Status:: unemployed Housing: house Household Members: other *Travel in the last 8 weeks: None Family Hx:: Unable to obtain
== END ==
PROVIDERS: Visit Provider Nurse Anesthetist, Certified Registered
DX: M51.36 Other intervertebral disc degeneration, lumbar region (principal); M17.0 Bilateral primary osteoarthritis of knee; M46.1 Sacroiliitis, not elsewhere classified
CPT/HCPCS: 99212; G0463